=== PATIENT | male | born 1955 | race African-American/Black ===

== ENCOUNTER 2022-03-14 12:21 | Inpatient (IN) | payer MEDICARE, BC ==
--- NOTE | 2022-03-14 13:34 | ED ---
General Adult HPI - General Chief complaint: Fall Stated complaint: Failure to thrive Time Seen by Provider: 03/14/22 12:30 Source: patient, RN notes reviewed, old records reviewed Mode of arrival: EMS Limitations: physical limitation - History of Present Illness Initial comments: This is a 66-year-old male who presents emergency department and according to EMS he was living in [facility]. Patient had urinated and had bowel movements in his clothes. Patient states he was on the ground for most the last 2 weeks occasionally was able to work himself up onto his feet and he states once he is on his feet he is able to walk but when he falls down or sits down he has a difficult time getting up. Patient states at one point in time he did fall back and hit his head on the table. Patient states he is actually no medical problems. Patient denies any pain currently. Patient states he does feel somewhat short of breath. Patient denies chest pain or palpitations. Patient denies any recent fever chills or cough per patient denies any nausea vomiting diarrhea. Patient ordered food today and the person delivering the food saw the patient's living conditions and called EMS. The police have petitioned the patient. - Related Data Home Medications Medication Instructions Recorded Confirmed Multivitamins, Thera [Multivitamin 1 tab PO DAILY 03/14/22 03/14/22 (formulary)] Naproxen Sodium [Aleve] 220 mg PO BID PRN 03/14/22 03/14/22 Allergies Allergy/AdvReac Type Severity Reaction Status Date / Time No Known Allergies Allergy Verified 03/14/22 16:35 Review of Systems ROS Statement: Those systems with pertinent positive or pertinent negative responses have been documented in the HPI. ROS Other: All systems not noted in ROS Statement are negative. Past Medical History Past Medical History: No Reported History History of Any Multi-Drug Resistant Organisms: None Reported Past Surgical History: Joint Replacement Additional Past Surgical History / Comment(s): L Knee replacement 2000 and R knee replacement in 2002. Past Psychological History: Depression Smoking Status: Former smoker Past Alcohol Use History: Occasional Past Drug Use History: None Reported General Exam - General Exam Comments Initial Comments: GENERAL: Patient is well-developed and well-nourished. Patient is nontoxic and well- hydrated and is in mild distress. Patient has a small hematoma to the occipital region of his head ENT: Neck is soft and supple. No significant lymphadenopathy is noted. Oropharynx is clear. Moist mucous membranes. Neck has full range of motion without eliciting any pain. EYES: The sclera were anicteric and conjunctiva were pink and moist. Extraocular movements were intact and pupils were equal round and reactive to light. Eyelids were unremarkable. PULMONARY: Unlabored respirations. Good breath sounds bilaterally. No audible rales rhonchi or wheezing was noted. CARDIOVASCULAR: There is a regular rate and rhythm without any murmurs gallops or rubs. ABDOMEN: Soft and nontender with normal bowel sounds. No palpable organomegaly was noted. There is no palpable pulsatile mass. SKIN: Skin is clear with no lesions or rashes and otherwise unremarkable. NEUROLOGIC: Patient is alert and oriented x3. Cranial nerves II through XII are grossly intact. Motor and sensory are also intact. Normal speech, volume and content. Symmetrical smile. MUSCULOSKELETAL: Normal extremities with adequate strength and full range of motion. No lower extremity swelling or edema. No calf tenderness. LYMPHATICS: No significant lymphadenopathy is noted PSYCHIATRIC: Normal psychiatric evaluation. Limitations: physical limitation Course Vital Signs 03/14/22 03/14/22 03/14/22 12:28 14:22 15:15 Temperature 97.8 F Pulse Rate 102 H 101 H 96 Respiratory 22 20 22 Rate Blood Pressure 149/96 139/101 161/106 O2 Sat by Pulse 100 97 98 Oximetry Medical Decision Making - Medical Decision Making EKG shows sinus rhythm with occasional PVC at 97 bpm NE interval 197 QRS 94 QT interval is 365 QTC is 420. Patient's EKG shows no ST segment elevation or depr ession. CT of the chest shows a positive PE bilaterally. There is no signs of right heart strain. [facility] agreed to admit the patient admitted the patient wrote admitting orders. - Lab Data Result diagrams: 03/14/22 13:28 03/14/22 13:28 Lab Results 03/14/22 03/14/22 03/14/22 Range/Units 13:28 13:28 13:28 WBC 7.1 (3.8-10.6) k/uL RBC 4.87 (4.30-5.90) m/uL Hgb 13.3 (13.0-17.5) gm/dL Hct 43.6 (39.0-53.0) % MCV 89.5 (80.0-100.0) fL MCH 27.2 (25.0-35.0) pg MCHC 30.4 L (31.0-37.0) g/dL RDW 13.5 (11.5-15.5) % Plt Count 236 (150-450) k/uL MPV 9.0 Neutrophils % 68 % Lymphocytes % 22 % Monocytes % 5 % Eosinophils % 3 % Basophils % 1 % Neutrophils # 4.8 (1.3-7.7) k/uL Lymphocytes # 1.6 (1.0-4.8) k/uL Monocytes # 0.3 (0-1.0) k/uL Eosinophils # 0.2 (0-0.7) k/uL Basophils # 0.1 (0-0.2) k/uL PT 10.5 (9.0-12.0) sec INR 1.0 (<1.2) APTT 23.9 (22.0-30.0) sec D-Dimer 6.15 H (<0.60) mg/L FEU Sodium 139 (137-145) mmol/L Potassium 4.3 (3.5-5.1) mmol/L Chloride 105 (98-107) mmol/L Carbon Dioxide 28 (22-30) mmol/L Anion Gap 6 mmol/L BUN 18 (9-20) mg/dL Creatinine 0.92 (0.66-1.25) mg/dL Est GFR (CKD-EPI)AfAm >90 (>60 ml/min/1.73 sqM) Est GFR (CKD-EPI)NonAf 88 (>60 ml/min/1.73 sqM) Glucose 134 H (74-99) mg/dL Plasma Lactic Acid Zak (0.7-2.0) mmol/L Calcium 8.9 (8.4-10.2) mg/dL Magnesium 1.7 (1.6-2.3) mg/dL Total Bilirubin 0.8 (0.2-1.3) mg/dL AST 25 (17-59) U/L ALT 14 (4-49) U/L Alkaline Phosphatase 87 (38-126) U/L Creatine Kinase 173 H (55-170) U/L Troponin I (0.000-0.034) ng/mL NT-Pro-B Natriuret Pep pg/mL Total Protein 7.9 (6.3-8.2) g/dL Albumin 3.9 (3.5-5.0) g/dL 03/14/22 03/14/22 03/14/22 Range/Units 13:28 13:28 13:28 WBC (3.8-10.6) k/uL RBC (4.30-5.90) m/uL Hgb (13.0-17.5) gm/dL Hct (39.0-53.0) % MCV (80.0-100.0) fL MCH (25.0-35.0) pg MCHC (31.0-37.0) g/dL RDW (11.5-15.5) % Plt Count (150-450) k/uL MPV Neutrophils % % Lymphocytes % % Monocytes % % Eosinophils % % Basophils % % Neutrophils # (1.3-7.7) k/uL Lymphocytes # (1.0-4.8) k/uL Monocytes # (0-1.0) k/uL Eosinophils # (0-0.7) k/uL Basophils # (0-0.2) k/uL PT (9.0-12.0) sec INR (<1.2) APTT (22.0-30.0) sec D-Dimer (<0.60) mg/L FEU Sodium (137-145) mmol/L Potassium (3.5-5.1) mmol/L Chloride (98-107) mmol/L Carbon Dioxide (22-30) mmol/L Anion Gap mmol/L BUN (9-20) mg/dL Creatinine (0.66-1.25) mg/dL Est GFR (CKD-EPI)AfAm (>60 ml/min/1.73 sqM) Est GFR (CKD-EPI)NonAf (>60 ml/min/1.73 sqM) Glucose (74-99) mg/dL Plasma Lactic Acid Zak 1.8 (0.7-2.0) mmol/L Calcium (8.4-10.2) mg/dL Magnesium (1.6-2.3) mg/dL Total Bilirubin (0.2-1.3) mg/dL AST (17-59) U/L ALT (4-49) U/L Alkaline Phosphatase (38-126) U/L Creatine Kinase (55-170) U/L Troponin I <0.012 (0.000-0.034) ng/mL NT-Pro-B Natriuret Pep 175 pg/mL Total Protein (6.3-8.2) g/dL Albumin (3.5-5.0) g/dL Critical Care Time Critical Care Time: Yes Total Critical Care Time: 35 Disposition Clinical Impression: Pulmonary embolism Disposition: ADMITTED IP TO THIS HOSP Referrals: None,Stated [Primary Care Provider] - 1-2 days Time of Disposition: 16:51
[2022-03-14 13:39] LABS: Basophils # (A) 0.1 k/uL (0-0.2); Basophils % (A) 1 %; Eosinophils # (A) 0.2 k/uL (0-0.7); Eosinophils % (A) 3 %; HCT 43.6 % (39.0-53.0); HGB 13.3 gm/dL (13.0-17.5); Lymphocytes # (A) 1.6 k/uL (1.0-4.8); Lymphocytes % (A) 22 %; MCH 27.2 pg (25.0-35.0); MCHC 30.4 g/dL (31.0-37.0); MCV 89.5 fL (80.0-100.0); Monocytes # (A) 0.3 k/uL (0-1.0); Monocytes % (A) 5 %; Neutrophils # (A) 4.8 k/uL (1.3-7.7); Neutrophils % (A) 68 %; Platelet Count 236 k/uL (150-450); RBC 4.87 m/uL (4.30-5.90); RDW 13.5 % (11.5-15.5); WBC 7.1 k/uL (3.8-10.6)
[2022-03-14 13:52] LABS: ALT 14 U/L (4-49); AST 25 U/L (17-59); African American GFR (CKD) >90 (>60 ml/min/1.73 sqM); Albumin 3.9 g/dL (3.5-5.0); Alkaline Phosphatase 87 U/L (38-126); Anion Gap 6 mmol/L; Blood Urea Nitrogen 18 mg/dL (9-20); Calcium 8.9 mg/dL (8.4-10.2); Carbon Dioxide 28 mmol/L (22-30); Chloride 105 mmol/L (98-107); Creatine Kinase 173 U/L (55-170); Glucose 134 mg/dL (74-99); Magnesium 1.7 mg/dL (1.6-2.3); Non-African American GFR(CKD) 88 (>60 ml/min/1.73 sqM); Potassium 4.3 mmol/L (3.5-5.1); Sodium 139 mmol/L (137-145); Total Bilirubin 0.8 mg/dL (0.2-1.3); Total Protein 7.9 g/dL (6.3-8.2)
[2022-03-14 14:04] LABS: Partial Thromboplastin Time 23.9 sec (22.0-30.0); Prothrombin Time 10.5 sec (9.0-12.0)
--- NOTE | 2022-03-14 14:16 | XR ---
EXAMINATION TYPE: XR chest 2V DATE OF EXAM: 03/14/2022 COMPARISON: NONE HISTORY: Difficulty in breathing. TECHNIQUE: Frontal and lateral views of the chest are obtained. FINDINGS: Lateral view markedly suboptimal due to large body habitus. Low lung volumes are present. T here is left basilar opacity. No pleural effusion or pneumothorax bilaterally. The cardiac silhouette size is mildly enlarged. Multilevel spurring in the spine. IMPRESSION: Low lung volumes and mild cardiomegaly with left basilar opacity consistent with acute i nfiltrate and/or atelectasis.
--- NOTE | 2022-03-14 14:18 | CT ---
EXAMINATION TYPE: CT brain cspine wo con DATE OF EXAM: 03/14/2022 COMPARISON: None HISTORY: Exceed 6-year-old male with pain after Fall. Trauma. CT DLP: 1971.6 mGycm Automated exposure control for dose reduction was used. Technique: Examination of the head was done in axial plane without intravenous contrast. Coronal and sagittal reconstructions performed. CT of the cervical spine was obtained in axial plane without intravenous injection of contrast mater ial. Coronal and sagittal reformatted images were obtained from the axial views for evaluation of f ractures, spinal alignment and canal. FINDINGS: Head: There is no evidence of acute intracranial hemorrhage, acute ischemic changes, mass, mass-effect, or extra-axial fluid collection. There is no effacement of cerebral sulci or basal subarachnoid cister ns. There is no hydrocephalus. There is no midline shift. Bourne-white matter distinction is preserv ed. Hypodensity right subinsular white matter suggesting old lacunar infarct. 2.5 cm mucosal retention cyst or polyp left maxillary sinus. Slight leftward nasal septal deviation. Mastoid air cells well pneumatized. Orbits and globes are intact. No calvarial fracture. Dense dural calcifications along the anterior falx. Normal variation persisten t CSP. Cervical spine: Patient motion. Multiple dental caries. Large body habitus. No craniocervical junction abnormality, predental space widening, or prevertebral soft tissue swellin g. Scattered facet and uncovertebral joint arthropathy, greater toward the left. Degenerative grade 1 anterolisthesis C2-C3, C3-C4, C4-C5. Remaining alignment is maintained. [id number] multilevel degenerative disc disease especially mid to lower cervical spine. Excessive artifacts from the patient's elevated shoulders limiting assessment of the spinal canal. No acute fracture seen allowing for the exam limitations and extensive artifacts. Variable moderate bilateral neuroforaminal stenoses throughout, more severe on the right at T2-T3. Sagittal and coronal reformatted images confirm above findings. COMBINED IMPRESSION: 1. No acute intracranial abnormality seen. Old lacunar infarct right basal ganglia. 2. No acute fracture of the cervical spine. Extensive motion artifact and further limitation due to l arge body habitus. Overall suboptimal assessment of the visualized mediastinum in the upper chest. De generative grade 1 anterolisthesis C2-C5 levels. Moderate spondylotic change.
[2022-03-14] MEDS ORDERED: LORazepam 2 MG/ML INJ IV STA (14:45)
--- NOTE | 2022-03-14 16:48 | CT ---
EXAMINATION TYPE: CT chest angio for PE DATE OF EXAM: 03/14/2022 COMPARISON: Chest radiograph same day HISTORY: 66-year-old male shortness of breath, elevated D-dimer and dyspnea TECHNIQUE: Contiguous axial scanning of the chest performed with IV Contrast, patient injected with 1 00 mL of Isovue 370. Coronal/sagittal MIP reconstructions performed. CT DLP: 1124.8 mGycm Automated exposure control for dose reduction was used. FINDINGS: Large patient body habitus. Heart is enlarged. No flattening of the interventricular septum. Minimal reflux of contrast into the IVC. Ectatic ascending aorta 3.7 cm. Tortuous arch vessels with conventional branching anatomy. Asymmetrically dense subareolar tissues right breast partially visualized. Suspect a prominent 1.2 cm lower right paratracheal lymph node. Otherwise, no progressive lymphadenop athy by CT size criteria. Large caliber to the main right and left pulmonary arteries measuring up to 3.4 cm. Extensive motion artifact degrading assessment for pulmonary embolus. However, we do visualize a few emboli suggested in the segmental branch left upper lobe, axial image 52 and distal interlobar and ri ght lower lobar and basilar segmental branches, for example, axial image 81 through 98. Visualized upper abdomen shows renal cysts measuring up to 7.5 cm there is suspected extensive sludge layering in the gallbladder. Possible 1.3 cm splenic artery aneurysm. Extensive motion artifacts limiting assessment of the lungs. There is some patchy areas of atelectasi s in the lower lungs. Mild emphysematous change. No pleural effusion. Bones: Anterior endplate spondylosis lower thoracic spine. Extensive motion artifact. IMPRESSION: 1. VERY LIMITED EXAM DUE TO LARGE BODY HABITUS AND EXTENSIVE BREATHING MOTION. 2. HOWEVER, EXAM IS POSITIVE FOR ACUTE PE. WE SEE SOME EMBOLI IN A SEGMENTAL BRANCH OF THE LEFT UPPER LOBE. GREATER DEGREE OF EMBOLI IN THE RIGHT LOWER LOBAR AND BASILAR SEGMENTAL BRANCHES. MILD OVERALL BURDEN. NO CT EVIDENCE FOR RIGHT HEART STRAIN. 3. CARDIOMEGALY, COPD WITH MILD EMPHYSEMA, AND PULMONARY ARTERIAL HYPERTENSION. 4. ASYMMETRIC SUBAREOLAR DENSITY RIGHT BREAST. PATIENT SHOULD BE REFERRED FOR OUTPATIENT DIAGNOSTIC M AMMOGRAM EVALUATION IF ROUTINE SCREENING MAMMOGRAMS ARE NOT BEING PERFORMED. CORRELATE FOR ANY PALPAB LE ABNORMALITY. Critical findings called to Dr. Cameron in the ER at 4:45 PM.
[2022-03-14] MEDS ORDERED: HEPARIN SODIUM 1,000 UN/ML (10ML VL) IV ONE (16:50)
[2022-03-14] MEDS ORDERED: SODIUM CHLORIDE 0.9% 1,000 ML IV ONE (16:54)
[2022-03-14] MEDS: HEPARIN SOD,PORK IN 0.45% NACL 25,000 UNIT in 0.45% NACL 1 250ML.BAG IV SCH (17:05)
[2022-03-14] MEDS ORDERED: ACETAMINOPHEN TAB 325 MG TAB PO PRN (19:24)
[2022-03-14] MEDS: HYDROcodone/APAP 5-325MG 1 EACH TAB PO PRN (20:06)
[2022-03-15 08:07] LABS: Basophils # (A) 0.1 k/uL (0-0.2); Basophils % (A) 1 %; Eosinophils # (A) 0.1 k/uL (0-0.7); Eosinophils % (A) 2 %; HGB 11.7 gm/dL (13.0-17.5); Lymphocytes # (A) 1.4 k/uL (1.0-4.8); Lymphocytes % (A) 19 %; MCH 27.6 pg (25.0-35.0); MCHC 30.8 g/dL (31.0-37.0); MCV 89.5 fL (80.0-100.0); Mean Platelet Volume 9.7; Monocytes # (A) 0.6 k/uL (0-1.0); Monocytes % (A) 8 %; Neutrophils # (A) 5.2 k/uL (1.3-7.7); Neutrophils % (A) 70 %; Platelet Count 202 k/uL (150-450); RBC 4.25 m/uL (4.30-5.90); RDW 13.7 % (11.5-15.5); WBC 7.4 k/uL (3.8-10.6)
[2022-03-15 08:23] LABS: ALT 13 U/L (4-49); AST 24 U/L (17-59); African American GFR (CKD) >90 (>60 ml/min/1.73 sqM); Albumin 3.6 g/dL (3.5-5.0); Alkaline Phosphatase 81 U/L (38-126); Anion Gap 8 mmol/L; Bilirubin,Unconjugated 1.2 mg/dL (0.0-1.1); Blood Urea Nitrogen 21 mg/dL (9-20); Calcium 8.7 mg/dL (8.4-10.2); Carbon Dioxide 25 mmol/L (22-30); Chloride 105 mmol/L (98-107); Glucose 100 mg/dL (74-99); Magnesium 1.7 mg/dL (1.6-2.3); Non-African American GFR(CKD) >90 (>60 ml/min/1.73 sqM); Partial Thromboplastin Time 40.5 sec (22.0-30.0); Prothrombin Time 10.8 sec (9.0-12.0); Sodium 138 mmol/L (137-145); Total Bilirubin 1.2 mg/dL (0.2-1.3); Total Protein 7.2 g/dL (6.3-8.2)
[2022-03-15] MEDS: HEPARIN SOD,PORK IN 0.45% NACL 25,000 UNIT in 0.45% NACL 1 250ML.BAG IV SCH ×3 (08:52→20:11)
[2022-03-15] MEDS: MULTIVITAMINS, THERA 1 EACH TAB PO SCH (08:53)
[2022-03-15] MEDS ORDERED: HEPARIN SODIUM 1,000 UN/ML (10ML VL) IV PRN (09:01)
--- NOTE | 2022-03-15 09:53 | P.HPIM ---
History of Present Illness This is a pleasant 66 years old male with past medical history of depression Pt was found by route delivery clerk on the floor of his home, pt states he has been crawling around on the floor for two weeks after a fall at his home appoximately two weeks ago. patient has been falling even before that but he was able to get up, this time he was on the floor most of his furniture of his house was been throat awake because it was not in good shape, patient states that he was in the process of moving out. he was able to survive through delivery food. There was no family member or somebody else to take care of him. Also has been complaining of shortness of breath for more than 2 weeks with some dry cough but no chest pain. no abdominal pain or vomiting or diarrhea. No urinary complaints. No headache or blurred vision or slurred speech. No dizziness. No weakness or numbness. No back pain. He does not think his legs are weaker than usual but he feels generally weak. at baseline he uses a walker or cane On admission patient is tachypneic with a rate of 22. He was tachycardic around 104. He was saturating 97% on 5 L oxygen sepsis with tachypnea and tachycardia CBC, BMP and liver enzymes are unremarkable. Creatinine kinase is 173. Troponin is negative. D-dimer is elevated to 6.15. CTA of the chest showing positive pulmonary embolism in the left upper lobe and the right lower lobe with no evidence of RV strain. Also COPD with emphysema and pulmonary hypertension. Asymmetric subareolar density in the right breast and mammogram is recommended. CT of the head and neck: No acute intracranial abnormality. No acute fracture of the cervical spine. Degenerative grade 1 anterolisthesis of C2-C5 levels. Moderate spondylitic change on admission patient was started on heparin drip and normal saline Review of Systems Review of systems CONSTITUTIONAL: No fever, no malaise, no fatigue. HEENT: No recent visual problems or hearing problems. Denied any sore throat. CARDIOVASCULAR: No orthopnea, PND, no palpitations, no syncope. PULMONARY: No chest wall tenderness, no hemoptysis. GASTROINTESTINAL: No diarrhea, no nausea, no vomiting, no abdominal pain. Normoactive bowel sounds. NEUROLOGICAL: No headaches, no weakness, no numbness. HEMATOLOGICAL: Denies any bleeding or petechiae. GENITOURINARY: Denies any burning micturition, frequency, or urgency. MUSCULOSKELETAL/RHEUMATOLOGICAL: Denies any joint pain, swelling, or any muscle pain. ENDOCRINE: Denies any polyuria or polydipsia. Past Medical History Past Medical History: No Reported History History of Any Multi-Drug Resistant Organisms: None Reported Past Surgical History: Joint Replacement Additional Past Surgical History / Comment(s): L Knee replacement 2000 and R knee replacement in 2002. Past Anesthesia/Blood Transfusion Reactions: No Reported Reaction Past Psychological History: Depression Smoking Status: Never smoker Past Alcohol Use History: Rare Past Drug Use History: None Reported Medications and Allergies Home Medications Medication Instructions Recorded Confirmed Type Multivitamins, Thera [Multivitamin 1 tab PO DAILY 03/14/22 03/14/22 History (formulary)] Naproxen Sodium [Aleve] 220 mg PO BID PRN 03/14/22 03/14/22 History Allergies Allergy/AdvReac Type Severity Reaction Status Date / Time No Known Allergies Allergy Verified 03/14/22 16:35 Physical Exam Vitals: Vital Signs Temp Pulse Pulse Resp BP BP Pulse Ox 03/15/22 08:56 98.1 F 93 20 122/84 96 03/15/22 04:00 98.6 F 73 14 112/67 98 03/15/22 00:00 97.4 F L 92 18 130/73 100 03/14/22 19:57 98.0 F 99 18 120/76 100 03/14/22 18:09 99 22 137/65 96 03/14/22 17:38 104 H 22 134/102 97 03/14/22 17:00 112 H 18 152/96 03/14/22 15:15 96 22 161/106 98 03/14/22 14:22 101 H 20 139/101 97 03/14/22 12:28 97.8 F 102 H 22 149/96 100 Intake and Output 03/14/22 03/15/22 03/15/22 22:59 06:59 14:59 Intake Total 180.925 71.023 Output Total 200 Balance -19.075 71.023 Intake: Intake, IV Titration 180.925 71.023 Amount Heparin Sod,Pork in 0.45% 180.925 71.023 NaCl 25,000 unit In 0.45 % NaCl 1 250ml.bag @ 13. 343 UNITS/KG/HR 22.999 mls/hr IV .[id number] [facility] Rx #:[id number] Output: Urine 200 Other: Voiding Method Urinal # Voids 1 Weight 172.365 kg 173.5 kg GENERAL: The patient is alert and oriented x3, not in any acute distress. Well developed, well nourished. HEENT: Pupils are round and equally reacting to light. EOMI. No scleral icterus. No conjunctival pallor. Normocephalic, atraumatic. No pharyngeal erythema. No thyromegaly. CARDIOVASCULAR: S1 and S2 present. No murmurs, rubs, or gallops. -PULMONARY: Chest is clear to auscultation, no wheezing or crackles. patient is to tachypnic ABDOMEN: Soft, nontender, nondistended, normoactive bowel sounds. No palpable organomegaly. MUSCULOSKELETAL: No joint swelling or deformity. EXTREMITIES: No cyanosis, clubbing, or pedal edema. NEUROLOGICAL: Gross neurological examination did not reveal any focal deficits. SKIN: No rashes. no petechiae. Results CBC & Chem 7: 03/15/22 07:23 03/15/22 07:23 Labs: Abnormal Lab Results - Last 24 Hours (Table) 03/14/22 03/14/22 03/14/22 Range/Units 13:28 13:28 13:28 RBC (4.30-5.90) m/uL Hgb (13.0-17.5) gm/dL Hct (39.0-53.0) % MCHC 30.4 L (31.0-37.0) g/dL APTT (22.0-30.0) sec D-Dimer 6.15 H (<0.60) mg/L FEU BUN (9-20) mg/dL Glucose 134 H (74-99) mg/dL Unconjugated Bilirubin (0.0-1.1) mg/dL Creatine Kinase 173 H (55-170) U/L 03/14/22 03/15/22 03/15/22 Range/Units 22:47 07:23 07:23 RBC 4.25 L (4.30-5.90) m/uL Hgb 11.7 L (13.0-17.5) gm/dL Hct 38.0 L (39.0-53.0) % MCHC 30.8 L (31.0-37.0) g/dL APTT 82.0 H 40.5 H (22.0-30.0) sec D-Dimer (<0.60) mg/L FEU BUN (9-20) mg/dL Glucose (74-99) mg/dL Unconjugated Bilirubin (0.0-1.1) mg/dL Creatine Kinase (55-170) U/L 03/15/22 Range/Units 07:23 RBC (4.30-5.90) m/uL Hgb (13.0-17.5) gm/dL Hct (39.0-53.0) % MCHC (31.0-37.0) g/dL APTT (22.0-30.0) sec D-Dimer (<0.60) mg/L FEU BUN 21 H (9-20) mg/dL Glucose 100 H (74-99) mg/dL Unconjugated Bilirubin 1.2 H (0.0-1.1) mg/dL Creatine Kinase (55-170) U/L Thrombosis Risk Factor Assmnt - Choose All That Apply Any of the Below Risk Factors Present?: Yes Each Factor Represents 1 point: Obesity (BMI >25), Swollen legs (current) Each Risk Factor Represents 2 Points: Age 61-74 years Each Risk Factor Represents 3 Points: History of DVT/PE Other congenital or acquired thrombophilia - If yes, enter type in comment: No Thrombosis Risk Factor Assessment Total Risk Factor Score: 7 Thrombosis Risk Factor Assessment Level: High Risk Assessment and Plan Assessment: Multiple acute pulmonary embolisms in the left upper lobe and right lower lobe with no RV strain on CT of the chest Asymmetric subareolar density in the right breast and mammogram COPD with mild emphysema Pulmonary hypertension morbid obesity with BMI of 53.3 Plan: This is a pleasant 66 years old male who presents with acute pulmonary embolism and deconditioning Continue with heparin drip Check echocardiogram Pulmonary consult Monitor labs. Labs and medication were reviewed.. Continue same treatment. Continue with symptomatic treatment. Resume home medication. Monitor lytes and vitals. DVT and GI prophylaxis. Further recommendations as per clinical course of the patient DVT prophylaxis: heparin GI Prophylaxis: Pepcid PT/OT: Pending Prognosis is guarded
--- NOTE | 2022-03-15 11:21 | US ---
EXAMINATION TYPE: US venous doppler duplex LE DATE OF EXAM: 03/15/2022 9:24 AM COMPARISON: NONE CLINICAL HISTORY: leg swelling. leg edema. recent PE SIDE PERFORMED: bilateral TECHNIQUE: The lower extremity deep venous system is examined utilizing real time linear array sonog belia with graded compression, doppler sonography and color-flow sonography. VESSELS IMAGED: Common Femoral Vein Deep Femoral Vein Greater Saphenous Vein * Femoral Vein Popliteal Vein Small Saphenous Vein * Proximal Calf Veins (* superficial vessels) Right Leg: technical limitations due to patient's body habitus, morbidly obese. no evidence of DVT as visualized. unable to visualize lower femoral vein for compression Left Leg: technical limitations due to patient's body habitus, morbidly obese. no evidence of DVT as visualized. IMPRESSION: Exam is somewhat limited technically. No deep venous thrombosis is evident however
--- NOTE | 2022-03-15 12:18 | P.CNPUL ---
History of Present Illness Consult date: 03/15/22 Requesting physician: Vernon Julien Reason for consult: dyspnea, hypoxemia, pulmonary embolism, abnormal CXR/CT Chief complaint: Shortness of breath. History of present illness: This is a 66-year-old black male, very poor historian, who presents to the emergency room on March 14, with falling, and being on the ground in his house, for 2 weeks. The patient states he had a hard time getting up. Apparently EMS found the patient in conditions, the patient apparently had urinated on himself, and had defecated on himself as well. The patient apparently states he was not able get up on his feet and walk around. He's been immobile for at least 2 weeks he states. The patient does not have a physician. He denies any medical problems. He doesn't really take any medications on a regular basis. According to the ER roxi he denied any chest pain or chest discomfort. There is no fever or chills. There is no nausea vomiting or diarrhea. There is no evidence of any abdominal pain according to the patient. The patient had a chest x-ray which limits. A CT angiogram showed some segmental and subsegmental pulmonary emboli in the left upper lobe and right lower lobe, although the quality of the scan was poor because of motion artifact in the patient's body habitus. Dopplers of the lower extremities are negative for DVT. Head and cervical spine CT showed nothing acute, although there was an old lacunar infarct in the right basal ganglia. There is no acute fracture of the cervical spine. Lab data includes a white count of 7.4, hemoglobin 11.7, hematocrit 38, and platelet count 202,000. D-dimer was 6.15. PTT was 40.5. Sodium 138, potassium 4, chlorides 105, CO2 25, BUN and creatinine were 21 and 0.84. His CK was only 173. Troponin was negative. N-terminal proBNP was negative. Albumin was 3.6. Liver function tests were normal. Review of Systems REVIEW OF SYSTEMS: CONSTITUTIONAL: Weakness. NEUROLOGIC: [ Negative.] HEENT: [ Negative.] CARDIAC: [Negative.] PULMONARY: Chronic shortness of breath. GI: [Negative.] : [Negative.] RHEUMATOLOGIC: [ Negative.] IMMUNOLOGIC: [ Negative.] ENDOCRINE: [Negative. ] DERMATOLOGIC: [Negative.] Past Medical History Past Medical History: No Reported History History of Any Multi-Drug Resistant Organisms: None Reported Past Surgical History: Joint Replacement Additional Past Surgical History / Comment(s): L Knee replacement 2000 and R knee replacement in 2002. Past Anesthesia/Blood Transfusion Reactions: No Reported Reaction Past Psychological History: Depression Smoking Status: Never smoker Past Alcohol Use History: Rare Past Drug Use History: None Reported Medications and Allergies Home Medications Medication Instructions Recorded Confirmed Type Multivitamins, Thera [Multivitamin 1 tab PO DAILY 03/14/22 03/14/22 History (formulary)] Naproxen Sodium [Aleve] 220 mg PO BID PRN 03/14/22 03/14/22 History Allergies Allergy/AdvReac Type Severity Reaction Status Date / Time No Known Allergies Allergy Verified 03/14/22 16:35 Physical Exam Osteopathic Statement: *. No significant issues noted on an osteopathic structural exam other than those noted in the History and Physical/Consult. Vitals: Vital Signs Temp Pulse Pulse Resp BP BP Pulse Ox 03/15/22 08:56 98.1 F 93 20 122/84 96 03/15/22 04:00 98.6 F 73 14 112/67 98 03/15/22 00:00 97.4 F L 92 18 130/73 100 03/14/22 19:57 98.0 F 99 18 120/76 100 03/14/22 18:09 99 22 137/65 96 03/14/22 17:38 104 H 22 134/102 97 03/14/22 17:00 112 H 18 152/96 03/14/22 15:15 96 22 161/106 98 03/14/22 14:22 101 H 20 139/101 97 03/14/22 12:28 97.8 F 102 H 22 149/96 100 Intake and Output 03/14/22 03/15/22 03/15/22 22:59 06:59 14:59 Intake Total 180.925 311.023 Output Total 200 100 Balance -19.075 211.023 Intake: Intake, IV Titration 180.925 71.023 Amount Heparin Sod,Pork in 0.45% 180.925 71.023 NaCl 25,000 unit In 0.45 % NaCl 1 250ml.bag @ 13. 343 UNITS/KG/HR 22.999 mls/hr IV .[id number] [facility] Rx #:[id number] Oral 240 Output: Urine 200 100 Other: Voiding Method Urinal # Voids 1 1 Weight 172.365 kg 173.5 kg No acute distress, oriented 3. The patient does appear mildly tachypnea. 4 L saturation is 96%. HEENT examination is grossly unremarkable. Neck supple. Full range of motion. No adenopathy thyromegaly or neck vein distention. Cardiovascular examination reveals regular rhythm rate. S1-S2 normal. No S3 or S4. No discernible murmur noted. Heart sounds are distant. Heart rate 93 bpm. Lungs reveal clear breath sounds. Breath sounds are equal bilaterally. No adventitious lung sounds including wheezes rhonchi or crackles. Abdomen soft bowel sounds are heard. No masses or tenderness. Extremities are intact. No cyanosis clubbing or edema. Skin is without rash or lesion. Neurologic examination is brief but nonfocal. Results - Laboratory Findings CBC and BMP: 03/15/22 07:23 03/15/22 07:23 PT/INR, D-dimer PT 10.8 sec (9.0-12.0) 03/15/22 07:23 INR 1.0 (<1.2) 03/15/22 07:23 D-Dimer 6.15 mg/L FEU (<0.60) H 03/14/22 13:28 Abnormal lab findings: Abnormal Labs 03/14/22 03/14/22 03/14/22 13:28 13:28 13:28 RBC Hgb Hct MCHC 30.4 L APTT D-Dimer 6.15 H BUN Glucose 134 H Unconjugated Bilirubin Creatine Kinase 173 H 03/14/22 03/15/22 03/15/22 22:47 07:23 07:23 RBC 4.25 L Hgb 11.7 L Hct 38.0 L MCHC 30.8 L APTT 82.0 H 40.5 H D-Dimer BUN Glucose Unconjugated Bilirubin Creatine Kinase 03/15/22 07:23 RBC Hgb Hct MCHC APTT D-Dimer BUN 21 H Glucose 100 H Unconjugated Bilirubin 1.2 H Creatine Kinase - Diagnostic Findings Chest x-ray: image reviewed CT scan - chest: image reviewed Assessment and Plan Assessment: Bilateral pulmonary emboli, in a patient with minimal pulmonary complaints. No evidence of DVT in the lower extremities. Profound weakness. Obesity. Previous history of tobacco use. History of depression. Status post bilateral knee replacements. Plan: Plan dated 03/15/2022. The patient is currently on 4 L nasal cannula. He is mildly tachypnea. He blames it on his weight he is receiving IV heparin, and a basic IV. His labs are remarkably normal. We will continue to follow make recommendations where appropriate. The patient apparently does not see a doctor on a regular basis. Dopplers of the lower extremities were negative. CT angiogram was reviewed. Time with Patient: Greater than 30
--- NOTE | 2022-03-15 18:09 | CA ---
Transthoracic Echo Report Name: Jackson Jaramillo Age: 66 Gender: M : 1955 Exam Date: 03/15/2022 07:33 Exam Location: [place] [facility] Ht (in): 71 Wt (lb): 380 Ordering Physician: Pan Chisholm MD Attending/Referring Phys: [id number], Kathrine [employer] Control Worker Karli Patiño, [facility] Procedure CPT: Indications: Rule out heart disease Cardiac Hx: Technical Quality: Fair Contrast 1: Total Dose (mL): Contrast 2: Total Dose (mL): MEASUREMENTS (Male / Female) Normal Values 2D ECHO LV Diastolic Diameter PLAX 4.5 cm 4.2 - 5.9 / 3.9 - 5.3 cm LV Systolic Diameter PLAX 2.7 cm IVS Diastolic Thickness 1.7 cm 0.6 - 1.0 / 0.6 - 0.9 cm LVPW Diastolic Thickness 1.6 cm 0.6 - 1.0 / 0.6 - 0.9 cm LV Relative Wall Thickness 0.7 RV Internal Dim ED PLAX 3.7 cm LA Systolic Diameter LX 4.3 cm 3.0 - 4.0 / 2.7 - 3.8 cm LA Volume 78.8 cm??? 18 - 58 / 22 - 52 cm??? M-MODE Aortic Root Diameter MM 3.6 cm MV E Point Septal Separation 1.7 cm AV Cusp Separation MM 2.2 cm DOPPLER AV Peak Velocity 154.4 cm/s AV Peak Gradient 9.5 mmHg AI Peak Velocity 387.2 cm/s AI Peak Gradient 60.0 mmHg AI Pressure Half Time 571.1 ms MV Area PHT 3.9 cm??? Mitral E Point Velocity 75.6 cm/s Mitral A Point Velocity 96.1 cm/s Mitral E to A Ratio 0.8 MV Deceleration Time 196.0 ms MV E' Velocity 5.5 cm/s Mitral E to MV E' Ratio 13.7 TR Peak Velocity 258.5 cm/s TR Peak Gradient 26.7 mmHg Right Ventricular Systolic Press 31.7 mmHg FINDINGS Left Ventricle Left ventricular ejection fraction is estimated at 60-65 %. Left ventricular cavity size normal. Moderate concentric left ventricular hypertrophy. Right Ventricle Mild right ventricular dilatation. Right Atrium Normal right atrial size. Left Atrium Mildly increased left atrial diameter. Moderately increased left atrial volume. Mildly increased left atrial area. Mitral Valve Mitral annular calcification. Aortic Valve Mild aortic regurgitation. Focal thickening of the aortic valve cusps. Tricuspid Valve Mild tricuspid regurgitation. Pulmonic Valve Trace pulmonic regurgitation. Pericardium Normal pericardium. Aorta Normal size aortic root and proximal ascending aorta. CONCLUSIONS Moderate concentric LVH Normal left ventricular ejection fraction 60-65% Mildly dilated left atrium Mild mitral annular calcification Mild aortic regurgitation Mild tricuspid regurgitation Previewed by: Dr. Jero Solo DO (Electronically Signed) Final Date: 15 March 2022 18:08
[2022-03-15] MEDS: HYDROcodone/APAP 5-325MG 1 EACH TAB PO PRN (23:10)
[2022-03-16] MEDS: ONDANSETRON 4 MG/2 ML VIAL IVP PRN ×2 (04:44→17:23)
[2022-03-16] MEDS: HEPARIN SOD,PORK IN 0.45% NACL 25,000 UNIT in 0.45% NACL 1 250ML.BAG IV SCH (06:54)
[2022-03-16 07:39] LABS: Basophils % (A) 0 %; Eosinophils # (A) 0.1 k/uL (0-0.7); Eosinophils % (A) 2 %; HCT 37.3 % (39.0-53.0); HGB 11.8 gm/dL (13.0-17.5); Lymphocytes # (A) 1.3 k/uL (1.0-4.8); Lymphocytes % (A) 21 %; MCH 28.3 pg (25.0-35.0); MCHC 31.6 g/dL (31.0-37.0); MCV 89.5 fL (80.0-100.0); Mean Platelet Volume 8.6; Monocytes # (A) 0.4 k/uL (0-1.0); Monocytes % (A) 7 %; Neutrophils % (A) 67 %; Platelet Count 219 k/uL (150-450); RBC 4.17 m/uL (4.30-5.90); RDW 14.1 % (11.5-15.5); WBC 5.9 k/uL (3.8-10.6)
[2022-03-16 08:10] LABS: African American GFR (CKD) >90 (>60 ml/min/1.73 sqM); Anion Gap 5 mmol/L; Blood Urea Nitrogen 20 mg/dL (9-20); Calcium 8.7 mg/dL (8.4-10.2); Carbon Dioxide 27 mmol/L (22-30); Chloride 107 mmol/L (98-107); Glucose 111 mg/dL (74-99); Magnesium 1.8 mg/dL (1.6-2.3); Non-African American GFR(CKD) >90 (>60 ml/min/1.73 sqM); Potassium 4.6 mmol/L (3.5-5.1); Sodium 139 mmol/L (137-145)
[2022-03-16] MEDS: MULTIVITAMINS, THERA 1 EACH TAB PO SCH (09:46)
[2022-03-16] MEDS: HYDROcodone/APAP 5-325MG 1 EACH TAB PO PRN (09:46)
--- NOTE | 2022-03-16 10:55 | P.PN ---
Subjective This is a pleasant 66 years old male with past medical history of depression Pt was found by route sales delivery driver on the floor of his home, pt states he has been crawling around on the floor for two weeks after a fall at his home appoximately two weeks ago. patient has been falling even before that but he was able to get up, this time he was on the floor most of his furniture of his house was been throat awake because it was not in good shape, patient states that he was in the process of moving out. he was able to survive through delivery food. There was no family member or somebody else to take care of him. Also has been complaining of shortness of breath for more than 2 weeks with some dry cough but no chest pain. no abdominal pain or vomiting or diarrhea. No urinary complaints. No headache or blurred vision or slurred speech. No dizziness. No weakness or numbness. No back pain. He does not think his legs are weaker than usual but he feels generally weak. at baseline he uses a walker or cane On admission patient is tachypneic with a rate of 22. He was tachycardic around 104. He was saturating 97% on 5 L oxygen sepsis with tachypnea and tachycardia CBC, BMP and liver enzymes are unremarkable. Creatinine kinase is 173. T roponin is negative. D-dimer is elevated to 6.15. CTA of the chest showing positive pulmonary embolism in the left upper lobe and the right lower lobe with no evidence of RV strain. Also COPD with emphysema and pulmonary hypertension. Asymmetric subareolar density in the right breast and mammogram is recommended. CT of the head and neck: No acute intracranial abnormality. No acute fracture of the cervical spine. Degenerative grade 1 anterolisthesis of C2-C5 levels. Moderate spondylitic change on admission patient was started on heparin drip and normal saline 03/16/2022 Patient breathing is a stable and his anticoagulation is turned into Eliquis, therapeutic dose. Patient aware of his diagnosis and the need to continue with blood thinners to prevent complication which are explained for the patient extensively. Also he was informed about his right breast lesion that he needs mammogram as an outpatient and he verbalized understanding and acceptance. Risks including but not limited to cancer explained for him and he agrees. Further blood tests ordered still pending. Physical therapist recommended subacute rehab, patient informed and he agrees Objective - Vital Signs Vital signs: Vital Signs Temp 98.3 F 03/16/22 09:36 Pulse 98 03/16/22 09:36 Resp 24 03/16/22 09:36 BP 108/69 03/16/22 09:36 Pulse Ox 98 03/16/22 09:36 FiO2 Intake & Output 03/15/22 03/16/22 03/16/22 18:59 06:59 18:59 Intake Total 1171.023 993.732 303.044 Output Total 700 320 Balance 471.023 673.732 303.044 Intake: IV 20 20 Invasive Line 2 20 20 Intake, IV Titration 71.023 493.732 63.044 Amount Heparin Sod,Pork in 0.45% 71.023 493.732 63.044 NaCl 25,000 unit In 0.45 % NaCl 1 250ml.bag @ 13. 343 UNITS/KG/HR 22.999 mls/hr IV .[id number] [facility] Rx #:[id number] Oral 1080 480 240 Output: Urine 700 320 Other: Voiding Method Urinal # Voids 2 1 - Exam -GENERAL: The patient is alert and oriented x3, not in any acute distress. Morbidly obese HEENT: Pupils are round and equally reacting to light. EOMI. No scleral icterus. No conjunctival pallor. Normocephalic, atraumatic. No pharyngeal erythema. No thyromegaly. CARDIOVASCULAR: S1 and S2 present. No murmurs, rubs, or gallops. PULMONARY: Chest is clear to auscultation, no wheezing or crackles. ABDOMEN: Soft, nontender, nondistended, normoactive bowel sounds. No palpable organomegaly. MUSCULOSKELETAL: No joint swelling or deformity. EXTREMITIES: No cyanosis, clubbing, or pedal edema. NEUROLOGICAL: Gross neurological examination did not reveal any focal deficits. SKIN: No rashes. no petechiae. - Labs CBC & Chem 7: 03/16/22 07:18 03/16/22 07:18 Labs: Abnormal Lab Results - Last 24 Hours (Table) 03/15/22 03/16/22 03/16/22 Range/Units 14:48 07:18 07:18 RBC (4.30-5.90) m/uL Hgb (13.0-17.5) gm/dL Hct (39.0-53.0) % APTT 65.4 H 92.5 H (22.0-30.0) sec Glucose 111 H (74-99) mg/dL 03/16/22 Range/Units 07:18 RBC 4.17 L (4.30-5.90) m/uL Hgb 11.8 L (13.0-17.5) gm/dL Hct 37.3 L (39.0-53.0) % APTT (22.0-30.0) sec Glucose (74-99) mg/dL Assessment and Plan Assessment: Multiple acute pulmonary embolisms in the left upper lobe and right lower lobe with no RV strain on CT of the chest Asymmetric subareolar density in the right breast and mammogram COPD with mild emphysema Pulmonary hypertension morbid obesity with BMI of 53.3 Plan: This is a pleasant 66 years old male who presents with acute pulmonary embolism and deconditioning Continue with Eliquis Pulmonary consult Patient agrees to rehab Patient will need mammogram for his right breast lesion, he is informed and agrees. Risk of cancer explained for him and he verbalized understanding Labs and medication were reviewed.. Continue same treatment. Continue with symptomatic treatment. Resume home medication. Monitor lytes and vitals. DVT and GI prophylaxis. Further recommendations as per clinical course of the patie nt DVT prophylaxis: Eliquis GI PROPHYLAXIS: Pepcid Subacute rehab upon discharge, patient agreeable Prognosis is guarded
[2022-03-16] MEDS: APIXABAN 5 MG TAB PO SCH ×2 (11:26→19:53)
--- NOTE | 2022-03-16 12:31 | P.PN ---
Subjective Progress Note Date: 03/16/22 Principal diagnosis: Shortness of breath. This is a 66-year-old black male, very poor historian, who presents to the emergency room on March 14, with falling, and being on the ground in his house, for 2 weeks. The patient states he had a hard time getting up. Apparently EMS found the patient in conditions, the patient apparently had urinated on himself, and had defecated on himself as well. The patient apparently states he was not able get up on his feet and walk around. He's been immobile for at least 2 weeks he states. The patient does not have a physician. He denies any medical problems. He doesn't really take any medications on a regular basis. According to the ER roxi he denied any chest pain or chest discomfort. There is no fever or chills. There is no nausea vomiting or diarrhea. There is no evidence of any abdominal pain according to the patient. The patient had a chest x-ray which limits. A CT angiogram showed some segmental and subsegmental pulmonary emboli in the left upper lobe and right lower lobe, although the quality of the scan was poor because of motion artifact in the patient's body habitus. Dopplers of the lower extremities are negative for DVT. Head and cervical spine CT showed nothing acute, although there was an old lacunar infarct in the right basal ganglia. There is no acute fracture of the cervical spine. Lab data inc ludes a white count of 7.4, hemoglobin 11.7, hematocrit 38, and platelet count 202,000. D-dimer was 6.15. PTT was 40.5. Sodium 138, potassium 4, chlorides 105, CO2 25, BUN and creatinine were 21 and 0.84. His CK was only 173. Troponin was negative. N-terminal proBNP was negative. Albumin was 3.6. Liver function tests were normal. Progress note dated 03/16/2022. 66-year-old black male seen yesterday in consultation. The patient was discovered to have a pulmonary embolism. The patient is currently on 4 L nasal cannula. The patient is feeling a bit better. Dopplers of the lower extr emities were negative for DVT. Current laboratory data includes a white count of 5.9, hemoglobin 11.8, hematocrit 37.3, and a platelet count of 219,000. PTT was 92.5. The patient does remain on an IV heparin drip. Sodium, potassium, chloride, CO2, anion gap, BUN, and creatinine are all normal. Objective - Vital Signs Vital signs: Vital Signs Temp 98.3 F 03/16/22 09:36 Pulse 98 03/16/22 09:36 Resp 24 03/16/22 09:36 BP 108/69 03/16/22 09:36 Pulse Ox 98 03/16/22 09:36 FiO2 Intake & Output 03/15/22 03/16/22 03/16/22 18:59 06:59 18:59 Intake Total 1171.023 993.732 303.044 Output Total 700 320 Balance 471.023 673.732 303.044 Intake: IV 20 20 Invasive Line 2 20 20 Intake, IV Titration 71.023 493.732 63.044 Amount Heparin Sod,Pork in 0.45% 71.023 493.732 63.044 NaCl 25,000 unit In 0.45 % NaCl 1 250ml.bag @ 13. 343 UNITS/KG/HR 22.999 mls/hr IV .[id number] [facility] Rx #:[id number] Oral 1080 480 240 Output: Urine 700 320 Other: Voiding Method Urinal # Voids 2 1 - Exam No acute distress, oriented 3. The patient does appear mildly tachypnea. 4 L saturation is 100%. HEENT examination is grossly unremarkable. Neck supple. Full range of motion. No adenopathy thyromegaly or neck vein distention. Cardiovascular examination reveals regular rhythm rate. S1-S2 normal. No S3 or S4. No discernible murmur noted. Heart sounds are distant. Heart rate 98 bpm. Lungs reveal clear breath sounds. Breath sounds are equal bilaterally. No adventitious lung sounds including wheezes rhonchi or crackles. Abdomen soft bowel sounds are heard. No masses or tenderness. Extremities are intact. No cyanosis clubbing or edema. Skin is without rash or lesion. Neurologic examination is brief but nonfocal. - Labs CBC & Chem 7: 03/16/22 07:18 03/16/22 07:18 Labs: Abnormal Lab Results - Last 24 Hours (Table) 03/15/22 03/16/22 03/16/22 Range/Units 14:48 07:18 07:18 RBC (4.30-5.90) m/uL Hgb (13.0-17.5) gm/dL Hct (39.0-53.0) % APTT 65.4 H 92.5 H (22.0-30.0) sec Glucose 111 H (74-99) mg/dL 03/16/22 Range/Units 07:18 RBC 4.17 L (4.30-5.90) m/uL Hgb 11.8 L (13.0-17.5) gm/dL Hct 37.3 L (39.0-53.0) % APTT (22.0-30.0) sec Glucose (74-99) mg/dL Assessment and Plan Assessment: Bilateral pulmonary emboli, in a patient with minimal pulmonary complaints. No evidence of DVT in the lower extremities. Profound weakness. Obesity. Previous history of tobacco use. History of depression. Status post bilateral knee replacements. Plan: Plan dated 03/15/2022. The patient is currently on 4 L nasal cannula. He is mildly tachypnea. He blames it on his weight he is receiving IV heparin, and a basic IV. His labs are remarkably normal. We will continue to follow make recommendations where appropriate. The patient apparently does not see a doctor on a regular basis. Dopplers of the lower extremities were negative. CT angiogram was reviewed. Plan dated 03/16/2022. The patient could be converted to a factor X a inhibitor. The patient remains on IV heparin currently. The patient's 4 L saturations on the percent. That can be titrated down. Labs, x-rays, and medications are all reviewed. CT angiogram in Dopplers of the lower extremities were reviewed. The patient's overall prognosis remains guarded. We will continue to follow make recommendations where appropriate. Time with Patient: Less than 30
[2022-03-17] MEDS: ONDANSETRON 4 MG/2 ML VIAL IVP PRN ×2 (00:24→08:41)
[2022-03-17] MEDS: APIXABAN 5 MG TAB PO SCH ×2 (08:41→21:15)
[2022-03-17] MEDS: MULTIVITAMINS, THERA 1 EACH TAB PO SCH (08:41)
--- NOTE | 2022-03-17 10:28 | XR ---
EXAMINATION TYPE: XR KUB DATE OF EXAM: 03/17/2022 COMPARISON: NONE HISTORY: Pain TECHNIQUE: One view abdominal series FINDINGS: The osseous structures are intact. The bowel gas pattern is nonspecific. Lung bases are clear. Cath eter overlying the left inguinal region. Exam limited by technique. Grossly bowel gas pattern is nons pecific. A few prominent small bowel loops are noted. Air is seen distally within the left colon. Upp er abdomen is not included in the [id number] and therefore assessment of free air nondiagnostic. A rthropathy of the hips correlate for femoral acetabular impingement. IMPRESSION: 1. Nonspecific abdomen. Few prominent small bowel loops could be on the basis of an ileus. Retained fecal debris throughout the colon can be associated with constipation. Correlate clinically.
[2022-03-17 11:34] LABS: Basophils % (A) 1 %; Eosinophils # (A) 0.1 k/uL (0-0.7); Eosinophils % (A) 1 %; HCT 38.6 % (39.0-53.0); HGB 12.2 gm/dL (13.0-17.5); Lymphocytes # (A) 0.9 k/uL (1.0-4.8); Lymphocytes % (A) 14 %; MCH 28.6 pg (25.0-35.0); MCHC 31.7 g/dL (31.0-37.0); MCV 90.3 fL (80.0-100.0); Mean Platelet Volume 9.1; Monocytes # (A) 0.3 k/uL (0-1.0); Monocytes % (A) 5 %; Neutrophils # (A) 4.7 k/uL (1.3-7.7); Neutrophils % (A) 77 %; Platelet Count 206 k/uL (150-450); RBC 4.28 m/uL (4.30-5.90); RDW 13.9 % (11.5-15.5); WBC 6.1 k/uL (3.8-10.6)
--- NOTE | 2022-03-17 14:07 | P.PN ---
Subjective Progress Note Date: 03/17/22 This is a 66-year-old black male, very poor historian, who presents to the emergency room on March 14, with falling, and being on the ground in his house, for 2 weeks. The patient states he had a hard time getting up. Apparently EMS found the patient in conditions, the patient apparently had urinated on himself, and had defecated on himself as well. The patient apparently states he was not able get up on his feet and walk around. He's been immobile for at least 2 weeks he states. The patient does not have a physician. He denies any medical problems. He doesn't really take any medications on a regular basis. According to the ER roxi he denied any chest pain or chest discomfort. There is no fever or chills. There is no nausea vomiting or diarrhea. There is no evidence of any abdominal pain according to the patient. The patient had a chest x-ray which limits. A CT angiogram showed some segmental and subsegmental pulmonary emboli in the left upper lobe and right lower lobe, although the quality of the scan was poor because of motion artifact in the patient's body habitus. Dopplers of the lower extremities are negative for DVT. Head and cervical spine CT showed nothing acute, although there was an old lacunar infarct in the right basal ganglia. There is no acute fracture of the cervical spine. Lab data includes a white count of 7.4, hemoglobin 11.7, hematocrit 38, and platelet count 202,000. D-dimer was 6.15. PTT was 40.5. Sodium 138, potassium 4, chlorides 105, CO2 25, BUN and creatinine were 21 and 0.84. His CK was only 173. Troponin was negative. N-terminal proBNP was negative. Albumin was 3.6. Liver function tests were normal. Progress note dated 03/16/2022. 66-year-old black male seen yesterday in consultation. The patient was discovered to have a pulmonary embolism. The patient is currently on 4 L nasal cannula. The patient is feeling a bit better. Dopplers of the lower extremities were negative for DVT. Current laboratory data includes a white count of 5.9, hemoglobin 11.8, hematocrit 37.3, and a platelet count of 219,000. PTT was 92.5. The patient does remain on an IV heparin drip. Sodium, potassium, chloride, CO2, anion gap, BUN, and creatinine are all normal. The patient is seen today 03/17/2022 in follow-up on the selective care unit. He is currently resting comfortably in bed. Awake and alert in no acute distress. Denies any worsening shortness of breath cough or congestion. No hemoptysis. No chest pain or palpitations. He has been transitioned to Eliquis. He does desaturate to 84% on room air. 96% on 2 L nasal cannula. He's been afebrile. Hemodynamically stable. KUB x-ray revealed nonspecific abdomen. Few prominent small bowel loops could be on the basis of an ileus. Retained fecal debris throughout the colon can be associated with constipation. The patient has been nauseated today. White count 6.1. Hemoglobin 12.2. Platelets 206. Objective - Vital Signs Vital signs: Vital Signs Temp 98.1 F 03/17/22 08:34 Pulse 100 03/17/22 08:34 Resp 18 03/17/22 08:44 BP 117/73 03/17/22 08:34 Pulse Ox 96 03/17/22 08:44 FiO2 Intake & Output 03/16/22 03/17/22 03/17/22 18:59 06:59 18:59 Intake Total 1163.044 540 20 Output Total 350 525 Balance 813.044 15 20 Intake: IV 20 20 Invasive Line 2 20 20 Intake, IV Titration 63.044 Amount Heparin Sod,Pork in 0.45% 63.044 NaCl 25,000 unit In 0.45 % NaCl 1 250ml.bag @ 13. 343 UNITS/KG/HR 22.999 mls/hr IV .[id number] [facility] Rx #:[id number] Oral 1080 540 Output: Urine 350 525 Other: Voiding Method Urinal Urinal Urinal # Voids 2 1 2 - Exam Awake, alert pleasant 66-year-old male patient. No acute distress, oriented 3. 2 L saturation is 96%. HEENT examination is grossly unremarkable. Neck supple. Full range of motion. No adenopathy thyromegaly or neck vein distention. Cardiovascular examination reveals regular rhythm rate. S1-S2 normal. No S3 or S4. No discernible murmur noted. Heart sounds are distant. Heart rate 98 bpm. Lungs reveal clear breath sounds. Breath sounds are equal bilaterally. No adventitious lung sounds including wheezes rhonchi or crackles. Abdomen soft bowel sounds are heard. No masses or tenderness. Extremities are intact. No cyanosis clubbing or edema. Skin is without rash or lesion. Neurologic examination is brief but nonfocal. - Labs CBC & Chem 7: 03/17/22 11:00 03/16/22 07:18 Labs: Abnormal Lab Results - Last 24 Hours (Table) 03/17/22 Range/Units 11:00 RBC 4.28 L (4.30-5.90) m/uL Hgb 12.2 L (13.0-17.5) gm/dL Hct 38.6 L (39.0-53.0) % Lymphocytes # 0.9 L (1.0-4.8) k/uL Assessment and Plan Assessment: Bilateral pulmonary emboli, in a patient with minimal pulmonary complaints. No evidence of DVT in the lower extremities. Profound weakness. Obesity. Previous history of tobacco use. History of depression. Status post bilateral knee replacements. Plan: The patient was seen and evaluated Stable from the pulmonary standpoint Initiated on Eliquis May require home oxygen Home once cleared by medicine I have personally seen and examined the patient, performed the documentation and the assessment and plan as written. Number of minutes spent on the visit: 10.
[2022-03-17] MEDS ORDERED: MAGNESIUM HYDROXIDE 2,400 MG/10 ML CUP PO PRN (16:00)
--- NOTE | 2022-03-17 16:00 | P.GSCN ---
History of Present Illness Consult date: 03/17/22 Reason for Consult: Abdominal pain, right breast lesion seen on CT, bilateral pulmonary embolism, super morbid obesity with BMI of 53. History of present illness: Patient is a 66-year-old gentleman admitted to [facility] through the emergency department 02/11/2022. He was found by a food mail delivery supervisor and his home in the repair on the floor and covered in excrement living in [facility]. The mail delivery supervisor called EMS who subsequently brought to the hospital. He doesn't follow with the position has no nearby family members. CT angiogram are confirmed bilateral segmental to subsegmental pulmonary embolus without signs of right heart strain. There is incidental note on CT of an asymmetrical lobular subareolar density on the right. Images were reviewed there is some subcutaneous fluid at the retroareolar lead regions bilaterally. There are a few scattered axillary lymph nodes between 1 and 1.5 cm, no grossly apparent lymphadenopathy and an irregular nodular mass at the subareolar region on the right. Patient denies breast pain or drainage or previous biopsies. An echocardiogram showed some moderate left ventricular concentric hypertrophy with acceptable systolic ejection fraction and mild valvular disease. Over the past 24 hours he's had some problems with waxing and waning lower abdominal pain in the setting of what he describes as constipation. He has had similar issues in the past. Pain is tolerable, patient's presently resting comfortably. CBC today reveals white blood cell count of 6.1, hemoglobin 12.2, platelet count of 206. Serum sodium yesterday was 139, potassium 4.6, CO2 of 27, creatinine 0.77, glucose of 111. Patient's been started on systemic anticoagulation for PE. Abdominal x-ray today showed nonspecific findings and a few unimpressive prominent small bowel loops that could is consistent with ileus, there was fecal retention seen consistent with a degree of constipation. Review of Systems All systems: negative - Constitutional Reports as per HPI - EENT Ears, nose, mouth and throat: Reports as per HPI - Cardiovascular Reports as per HPI, Reports dyspnea on exertion, Reports shortness of breath - Respiratory Reports as per HPI, Reports dyspnea - Gastrointestinal Reports as per HPI, Reports abdominal pain, Reports constipation - Genitourinary Reports as per HPI - Musculoskeletal Reports as per HPI - Integumentary Reports as per HPI - Neurological Reports as per HPI - Psychiatric Reports as per HPI - Endocrine Reports as per HPI - Hematologic/Lymphatic Reports as per HPI - Allergic/Immunologic Reports as per HPI Past Medical History Past Medical History: No Reported History History of Any Multi-Drug Resistant Organisms: None Reported Past Surgical History: Joint Replacement Additional Past Surgical History / Comment(s): L Knee replacement 2000 and R knee replacement in 2002. Past Anesthesia/Blood Transfusion Reactions: No Reported Reaction Past Psychological History: Depression Smoking Status: Never smoker Past Alcohol Use History: Rare Past Drug Use History: None Reported Medications and Allergies Home Medications Medication Instructions Recorded Confirmed Type Multivitamins, Thera [Multivitamin 1 tab PO DAILY 03/14/22 03/14/22 History (formulary)] Naproxen Sodium [Aleve] 220 mg PO BID PRN 03/14/22 03/14/22 History Allergies Allergy/AdvReac Type Severity Reaction Status Date / Time No Known Allergies Allergy Verified 03/14/22 16:35 Surgical - Exam Osteopathic Statement: *. No significant issues noted on an osteopathic structural exam other than those noted in the History and Physical/Consult. Vital Signs Temp Pulse Resp BP Pulse Ox 97.8 F 102 H 22 149/96 100 03/14/22 12:28 03/14/22 12:28 03/14/22 12:28 03/14/22 12:28 03/14/22 12:28 - General no distress, obese - Eyes PERRL, normal ocular movement - ENT normal pinna, normal nares, no congestion - Neck no masses - Respiratory normal expansion, normal respiratory effort, clear to auscultation - Cardiovascular Rhythm: regular - Abdomen Mild lower abdominal tenderness on deep palpation. I'm unable to appreciate a hernia on exam but physical exam is complicated by super morbid obesity. Patient has innumerable skin lesions consistent with minor carbuncles and furuncles. No signs of abscess Abdomen: soft - Neurologic normal coordination, normal sensation - Psychiatric oriented to time, oriented to person, oriented to place, speech is normal, memory intact Breast exam reveals a palpable 3.5 x 3.5 or so soft tissue irregularity at the left retroareolar area over region and contrast at the CT findings there is fluctuance under the right nipple area complex without induration or cellulitis. No tenderness no nipple retraction no overlying skin changes. No appreciable axillary lymphadenopathy. Results - Labs 03/17/22 11:00 03/16/22 07:18 Abnormal Lab Results - Last 24 Hours (Table) 03/17/22 Range/Units 11:00 RBC 4.28 L (4.30-5.90) m/uL Hgb 12.2 L (13.0-17.5) gm/dL Hct 38.6 L (39.0-53.0) % Lymphocytes # 0.9 L (1.0-4.8) k/uL - Imaging Abdominal x-ray: report reviewed, image reviewed CT scan - chest: report reviewed, image reviewed Assessment and Plan Assessment: 66-year-old gentleman with right sided soft tissue retroareolar density seen incidentally on CT without discrete lymphadenopathy on exam or imaging. No localized antecedent trauma described, no previous biopsy. Rule out underlying neoplasia. Acute pulmonary embolus in the setting of a fall without obvious injuries. Started on systemic anticoagulants. Lower abdominal pain, clinical history, imaging and exam consistent with a degree of constipation. No evidence of bowel obstruction seen on initial CT, no evidence of hernia on physical exam as able. Super morbid obesity with BMI of 53. Plan: Workup of breast masses generally pursued in an outpatient setting and always starts with diagnostic mammogram. Given the patient's social situation will order a bilateral diagnostic mammogram and see if that can be completed in the hospital. Depending on the findings he may need to subsequent diagnostic ultrasound with image guided biopsy. The lesion described on CT on the right isn't really palpable. Patient's abdominal pain would be consistent with a de gree of constipation, will administer a dose of milk of magnesia today and as needed and we will see how he does. Continue with medical treatment for PE per consultants. Time with Patient: Greater than 30
--- NOTE | 2022-03-17 16:50 | P.PN ---
Subjective This is a pleasant 66 years old male with past medical history of depression Pt was found by delivery director on the floor of his home, pt states he has been crawling around on the floor for two weeks after a fall at his home appoximately two weeks ago. patient has been falling even before that but he was able to get up, this time he was on the floor most of his furniture of his house was been throat awake because it was not in good shape, patient states that he was in the process of moving out. he was able to survive through delivery food. There was no family member or somebody else to take care of him. Also has been complaining of shortness of breath for more than 2 weeks with some dry cough but no chest pain. no abdominal pain or vomiting or diarrhea. No urinary complaints. No headache or blurred vision or slurred speech. No dizziness. No weakness or numbness. No back pain. He does not think his legs are weaker than usual but he feels generally weak. at baseline he uses a walker or cane On admission patient is tachypneic with a rate of 22. He was tachycardic around 104. He was saturating 97% on 5 L oxygen sepsis with tachypnea and tachycardia CBC, BMP and liver enzymes are unremarkable. Creatinine kinase is 173. T roponin is negative. D-dimer is elevated to 6.15. CTA of the chest showing positive pulmonary embolism in the left upper lobe and the right lower lobe with no evidence of RV strain. Also COPD with emphysema and pulmonary hypertension. Asymmetric subareolar density in the right breast and mammogram is recommended. CT of the head and neck: No acute intracranial abnormality. No acute fracture of the cervical spine. Degenerative grade 1 anterolisthesis of C2-C5 levels. Moderate spondylitic change on admission patient was started on heparin drip and normal saline 03/16/2022 Patient breathing is a stable and his anticoagulation is turned into Eliquis, therapeutic dose. Patient aware of his diagnosis and the need to continue with blood thinners to prevent complication which are explained for the patient extensively. Also he was informed about his right breast lesion that he needs mammogram as an outpatient and he verbalized understanding and acceptance. Risks including but not limited to cancer explained for him and he agrees. Further blood tests ordered still pending. Physical therapist recommended subacute rehab, patient informed and he agrees 03/17/2022 Patient is awake and alert, breathing is quiet. He is saturating well on 2 L oxygen per minute. Mild leukocytosis of 12.2 which is stable. TSH 2.5. Today he started complaining of from abdominal pain, periumbilical with vomiting, he did not have bowel movements since admission. Therefore we will order a KUB and ask for surgery team consult. Patient currently is wished on Eliquis. Bedside nurse noted the patient severely depressed and emotional easily and he might benefit from psychiatric evaluation Objective - Vital Signs Vital signs: Vital Signs Temp 98.1 F 03/17/22 08:34 Pulse 100 03/17/22 08:34 Resp 18 03/17/22 08:44 BP 117/73 03/17/22 08:34 Pulse Ox 96 03/17/22 08:44 FiO2 Intake & Output 03/16/22 03/17/22 03/17/22 18:59 06:59 18:59 Intake Total 1163.044 540 20 Output Total 350 525 Balance 813.044 15 20 Intake: IV 20 20 Invasive Line 2 20 20 Intake, IV Titration 63.044 Amount Heparin Sod,Pork in 0.45% 63.044 NaCl 25,000 unit In 0.45 % NaCl 1 250ml.bag @ 13. 343 UNITS/KG/HR 22.999 mls/hr IV .[id number] [facility] Rx #:[id number] Oral 1080 540 Output: Urine 350 525 Other: Voiding Method Urinal Urinal Urinal # Voids 2 1 2 - Exam -GENERAL: The patient is alert and oriented x3, not in any acute distress. Morbidly obese HEENT: Pupils are round and equally reacting to light. EOMI. No scleral icterus. No conjunctival pallor. Normocephalic, atraumatic. No pharyngeal erythema. No thyromegaly. CARDIOVASCULAR: S1 and S2 present. No murmurs, rubs, or gallops. PULMONARY: Chest is clear to auscultation, no wheezing or crackles. ABDOMEN: Soft, nontender, nondistended, normoactive bowel sounds. No palpable organomegaly. MUSCULOSKELETAL: No joint swelling or deformity. EXTREMITIES: No cyanosis, clubbing, or pedal edema. NEUROLOGICAL: Gross neurological examination did not reveal any focal deficits. SKIN: No rashes. no petechiae. - Labs CBC & Chem 7: 03/17/22 11:00 03/16/22 07:18 Assessment and Plan Assessment: Multiple acute pulmonary embolisms in the left upper lobe and right lower lobe with no RV strain on CT of the chest Asymmetric subareolar density in the right breast Abdominal pain suspicious for ileus versus bowel obstruction. KUB and surgery consult ordered Sadness and emotional, rule out depression COPD with mild emphysema Pulmonary hypertension morbid obesity with BMI of 53.3 Plan: This is a pleasant 66 years old male who presents with acute pulmonary embolism and deconditioning Continue with Eliquis Pulmonary consult Patient agrees to rehab Patient will need mammogram for his right breast lesion, he is informed and agrees. Risk of cancer explained for him and he verbalized understanding Surgical team consult for breast lesion and abdominal pain. Psychiatric consult for ruling out depression Labs and medication were reviewed.. Continue same treatment. Continue with symptomatic treatment. Resume home medication. Monitor lytes and vitals. DVT and GI prophylaxis. Further recommendations as per clinical course of the patient DVT prophylaxis: Eliquis GI PROPHYLAXIS: Pepcid Subacute rehab upon discharge, patient agreeable Prognosis is guarded
[2022-03-18] MEDS: APIXABAN 5 MG TAB PO SCH ×2 (08:50→21:41)
[2022-03-18] MEDS: MULTIVITAMINS, THERA 1 EACH TAB PO SCH (08:50)
[2022-03-18 09:43] LABS: Basophils % (A) 1 %; Eosinophils # (A) 0.1 k/uL (0-0.7); Eosinophils % (A) 2 %; HGB 12.2 gm/dL (13.0-17.5); Lymphocytes # (A) 0.8 k/uL (1.0-4.8); Lymphocytes % (A) 14 %; MCH 28.1 pg (25.0-35.0); MCHC 31.3 g/dL (31.0-37.0); MCV 89.8 fL (80.0-100.0); Mean Platelet Volume 8.6; Monocytes # (A) 0.4 k/uL (0-1.0); Monocytes % (A) 7 %; Neutrophils # (A) 4.1 k/uL (1.3-7.7); Neutrophils % (A) 75 %; Platelet Count 208 k/uL (150-450); RBC 4.35 m/uL (4.30-5.90); RDW 13.8 % (11.5-15.5); WBC 5.5 k/uL (3.8-10.6)
[2022-03-18 10:25] LABS: ALT 15 U/L (4-49); AST 26 U/L (17-59); African American GFR (CKD) >90 (>60 ml/min/1.73 sqM); Albumin 3.7 g/dL (3.5-5.0); Alkaline Phosphatase 74 U/L (38-126); Anion Gap 10 mmol/L; Bilirubin, Delta 0.1 mg/dL (0.0-0.2); Blood Urea Nitrogen 10 mg/dL (9-20); Calcium 8.7 mg/dL (8.4-10.2); Carbon Dioxide 30 mmol/L (22-30); Chloride 98 mmol/L (98-107); Glucose 103 mg/dL (74-99); Magnesium 1.8 mg/dL (1.6-2.3); Non-African American GFR(CKD) >90 (>60 ml/min/1.73 sqM); Potassium 4.2 mmol/L (3.5-5.1); Sodium 138 mmol/L (137-145); Total Bilirubin 1.1 mg/dL (0.2-1.3); Total Protein 7.6 g/dL (6.3-8.2)
[2022-03-18 10:51] VITALS: RESP 18
--- NOTE | 2022-03-18 12:21 | P.PN ---
Subjective Progress Note Date: 03/18/22 This is a 66-year-old black male, very poor historian, who presents to the emergency room on March 14, with falling, and being on the ground in his house, for 2 weeks. The patient states he had a hard time getting up. Apparently EMS found the patient in conditions, the patient apparently had urinated on himself, and had defecated on himself as well. The patient apparently states he was not able get up on his feet and walk around. He's been immobile for at least 2 weeks he states. The patient does not have a physician. He denies any medical problems. He doesn't really take any medications on a regular basis. According to the ER roxi he denied any chest pain or chest discomfort. There is no fever or chills. There is no nausea vomiting or diarrhea. There is no evidence of any abdominal pain according to the patient. The patient had a chest x-ray which limits. A CT angiogram showed some segmental and subsegmental pulmonary emboli in the left upper lobe and right lower lobe, although the quality of the scan was poor because of motion artifact in the patient's body habitus. Doppler s of the lower extremities are negative for DVT. Head and cervical spine CT showed nothing acute, although there was an old lacunar infarct in the right basal ganglia. There is no acute fracture of the cervical spine. Lab data includes a white count of 7.4, hemoglobin 11.7, hematocrit 38, and platelet count 202,000. D-dimer was 6.15. PTT was 40.5. Sodium 138, potassium 4, chlorides 105, CO2 25, BUN and creatinine were 21 and 0.84. His CK was only 173. Troponin was negative. N-terminal proBNP was negative. Albumin was 3.6. Liver function tests were normal. Progress note dated 03/16/2022. 66-year-old black male seen yesterday in consultation. The patient was discovered to have a pulmonary embolism. The patient is currently on 4 L nasal cannula. The patient is feeling a bit better. Dopplers of the lower extremities were negative for DVT. Current laboratory data includes a white count of 5.9, hemoglobin 11.8, hematocrit 37.3, and a platelet count of 219,000. PTT was 92.5. The patient does remain on an IV heparin drip. Sodium, potassium, chloride, CO2, anion gap, BUN, and creatinine are all normal. The patient is seen today 03/17/2022 in follow-up on the selective care unit. He is currently resting comfortably in bed. Awake and alert in no acute distress. Denies any worsening shortness of breath cough or congestion. No hemoptysis. No chest pain or palpitations. He has been transitioned to Eliquis. He does desaturate to 84% on room air. 96% on 2 L nasal cannula. He's been afebrile. Hemodynamically stable. KUB x-ray revealed nonspecific abdomen. Few prominent small bowel loops could be on the basis of an ileus. Retained fecal debris throughout the colon can be associated with constipation. The patient has been nauseated today. White count 6.1. Hemoglobin 12.2. Platelets 206. 2021, I'm seeing the patient for a follow-up. Is a case of pulmonary embolism and is currently on Eliquis Milligrams by mouth twice a day. Is a new diagnosis of pulmonary embolism. All of his blood work essentially within normal limits. The patient is currently on 2 L of O2 nasal cannula with a pulse ox of 98%. Doppler of the lower extremity was negative. CT angiogram of the chest was completed at the time of admission and the patient was found to have segmental and subsegmental pulmonary emboli in the left upper lobe and right lower lobe. No other complaints otherwise for now. No bleeding complications. I personally reviewed the CAT scan of the chest and I agreed to the fact of presence of some unusual subsegmental defects to suggest pulmonary embolism. Objective - Vital Signs Vital signs: Vital Signs Temp 98.2 F 03/18/22 07:55 Pulse 84 03/18/22 07:55 Resp 18 03/18/22 07:55 BP 117/69 03/18/22 07:55 Pulse Ox 98 03/18/22 07:55 FiO2 Intake & Output 03/17/22 03/18/22 03/18/22 18:59 06:59 18:59 Intake Total 40 280 828 Output Total 200 300 Balance -160 -20 828 Intake: IV 40 40 10 Invasive Line 2 40 40 10 Oral 240 818 Output: Urine 200 300 Other: Voiding Method Urinal External Catheter # Voids 2 1 # Bowel Movements 2 - Exam Awake, alert pleasant 66-year-old male patient. No acute distress, oriented 3. 2 L saturation is 96%. HEENT examination is grossly unremarkable. Neck supple. Full range of motion. No adenopathy thyromegaly or neck vein distention. Cardiovascular examination reveals regular rhythm rate. S1-S2 normal. No S3 or S4. No discernible murmur noted. Heart sounds are distant. Heart rate 98 bpm. Lungs reveal clear breath sounds. Breath sounds are equal bilaterally. No adventitious lung sounds including wheezes rhonchi or crackles. Abdomen soft bowel sounds are heard. No masses or tenderness. Extremities are intact. No cyanosis clubbing or edema. Skin is without rash or lesion. Neurologic examination is brief but nonfocal. - Labs CBC & Chem 7: 03/18/22 08:56 03/18/22 08:56 Labs: Abnormal Lab Results - Last 24 Hours (Table) 03/18/22 03/18/22 Range/Units 08:56 08:56 Hgb 12.2 L (13.0-17.5) gm/dL Lymphocytes # 0.8 L (1.0-4.8) k/uL Creatinine 0.65 L (0.66-1.25) mg/dL Glucose 103 H (74-99) mg/dL Assessment and Plan Plan: Acute hypoxic respiratory failure and the patient is currently on 3 L O2 nasal cannula Bilateral pulmonary emboli, in a patient with minimal pulmonary complaints.The patient is currently on Eliquis 10 mg by mouth twice a day and the patient is off IV heparin. No evidence of DVT in the lower extremities. Profound weakness. Obesity. Previous history of tobacco use. History of depression. Status post bilateral knee replacements. Plan: Provide the patient incentive spirometer Wean FiO2 Continue anticoagulation with Eliquis Increase mobility Discharge planning is in progress. The daughter may end up taking her father's to [facility] [place] for further care.
--- NOTE | 2022-03-18 15:20 | P.CN ---
Psychiatric Consult - . Consult date: 03/18/22 Consult:: IDENTIFYING DATA: This patient is a 66-year-old -Israeli male with to the medical unit on 03/15/2022 due to multiple acute pulmonary embolisms. REASON FOR REFERRAL: Psychiatry was consulted for depression. HISTORY OF PRESENT ILLNESS: The patient presented to the hospital on 03/14/2022 after being found by his courier delivery driver as living on the ground of his house for at least 2 weeks and living in [facility]. Patient was found to be suffering from multiple acute pulmonary embolisms. On my assessment today, patient is found laying in bed and is cooperative on assessment. He admits to struggling with depression for many years, and depression has worsened over the past 2 years as the pad that make and his daughter moving to [place]. He endorses depressed mood, anhedonia, low energy, difficulty concentrating, difficulty sleeping, excessive guilt and variable appetite. He denies suicidal or homicidal ideations, plan or intent. Patient denies any auditory, visual hallucinations and denies any paranoia or delusions. He reports his about 10 years ago and his daughter moved to [place] in the past 2 years. He tells me today that he now plans on moving to [place] to be closer to his daughter. He states his daughter is looking for an apartment for him in that area. He reports he was previously prescribed Zoloft about 14-16 years ago which helped his depression. He reports stopping the Zoloft after about a year as he felt better. He also reports a history of anxiety with chronic worries that are difficult to control. Patients denies drug or alcohol abuse. PAST PSYCHIATRIC HISTORY: Patient has a a history of depression. Patient reports previously taking Zoloft about 14-16 years ago which was helpful for his depression. Patient denies any previous psychiatric hospitalizations. Patient denies any psychiatric outpatient follow-up. Patient denies any history of suicide attempts in the past. PAST MEDICAL HISTORY: Multiple acute pulmonary embolisms in the left upper lobe and right lower lobe with no RV strain on CT of the chest Asymmetric subareolar density in the right breast and mammogram COPD with mild emphysema Pulmonary hypertension morbid obesity with BMI of 53.3 ALLERGIES: as per EMR. CHEMICAL DEPENDENCY HISTORY: He denies alcohol or drug abuse. He is a former smoker. FAMILY PSYCHIATRIC/SUBSTANCE USE HISTORY: Reports his father was an alcoholic. SOCIAL HISTORY: Patient was born and raised in [facility]. He is , about 10-12 years ago. He has a daughter who lives in [place]. He last worked about 15 years ago with [employer]. He is currently on disability. He lives alone in a rented [facility], but plans to move to [place] to be closer to his daughter. MENTAL STATUS EXAM: General Appearance: Patient appears to be stated age, is morbidly obese, with marginal hygiene and grooming. Behavior: Patient is calmly lying in bed without any agitated behavior. Speech: Patient's speech is fluent and nonpressured. Mood/Affect: Patient reports his mood is "depressed", affect is congruent Suicidality/Homicidality: Patient denies having any suicidal or homicidal ideation intent or plan. Perceptions: Patient denies any visual hallucinations and denies any auditory hallucinations. Though content/process: There is no evidence of any delusional thought content and thought process is linear and goal-directed. Memory and concentration: AOX3, grossly intact for the purposes of this session. Can spell "WORLD" backwards Judgment and insight: Fair IMPRESSIONS: Major depressive disorder, recurrent, moderate Unspecified anxiety disorder PLAN: -At this time patient DOES NOT meet criteria for inpatient psychiatric admission. -Would recommend the following medication changes/additions: Start Zoloft 50 mg daily for depression and anxiety. -Continue to reassess safety and initiate sitter if safety concerns arise. He is currently denying suicidal ideations. -platform worker to provide patient with outpatient mental health/psychiatry resources for appropriate follow up upon discharge. He plans to relocate to the [place] area. -Will continue to follow along to assess response to Zoloft. -Please contact with any questions. 03/18/22 14:18 03/18/22 15:09
[2022-03-18] MEDS: SERTRALINE 50 MG TAB PO SCH (16:41)
[2022-03-19] MEDS: MULTIVITAMINS, THERA 1 EACH TAB PO SCH (09:13)
[2022-03-19] MEDS: SERTRALINE 50 MG TAB PO SCH (09:13)
[2022-03-19] MEDS: APIXABAN 5 MG TAB PO SCH (09:13)
--- NOTE | 2022-03-19 09:57 | P.PN ---
Subjective Progress Note Date: 03/18/22 This is a pleasant 66 years old male with past medical history of depression Pt was found by labor delivery rn on the floor of his home, pt states he has been crawling around on the floor for two weeks after a fall at his home appoximately two weeks ago. patient has been falling even before that but he was able to get up, this time he was on the floor most of his furniture of his house was been throat awake because it was not in good shape, patient states that he was in the process of moving out. he was able to survive through delivery food. There was no family member or somebody else to take care of him. Also has been complaining of shortness of breath for more than 2 weeks with some dry cough but no chest pain. no abdominal pain or vomiting or diarrhea. No urinary complaints. No headache or blurred vision or slurred speech. No dizziness. No weakness or numbness. No back pain. He does not think his legs are weaker than usual but he feels generally weak. at baseline he uses a walker or cane On admission patient is tachypneic with a rate of 22. He was tachycardic around 104. He was saturating 97% on 5 L oxygen sepsis with tachypnea and tachycardia CBC, BMP and liver enzymes are unremarkable. Creatinine kinase is 173. Troponin is negative. D-dimer is elevated to 6.15. CTA of the chest showing positive pulmonary embolism in the left upper lobe and the right lower lobe with no evidence of RV strain. Also COPD with emphysema and pulmonary hypertension. Asymmetric subareolar density in the right breast and mammogram is recommended. CT of the head and neck: No acute intracranial abnormality. No acute fracture of the cervical spine. Degenerative grade 1 anterolisthesis of C2-C5 levels. Moderate spondylitic change on admission patient was started on heparin drip and normal saline 03/16/2022 Patient breathing is a stable and his anticoagulation is turned into Eliquis, therapeutic dose. Patient aware of his diagnosis and the need to continue with blood thinners to prevent complication which are explained for the patient extensively. Also he was informed about his right breast lesion that he needs mammogram as an outpatient and he verbalized understanding and acceptance. Risks including but not limited to cancer explained for him and he agrees. Further blood tests ordered still pending. Physical therapist recommended subacute rehab, patient informed and he agrees 03/17/2022 Patient is awake and alert, breathing is quiet. He is saturating well on 2 L ox ygen per minute. Mild leukocytosis of 12.2 which is stable. TSH 2.5. Today he started complaining of from abdominal pain, periumbilical with vomiting, he did not have bowel movements since admission. Therefore we will order a KUB and ask for surgery team consult. Patient currently is wished on Eliquis. Bedside nurse noted the patient severely depressed and emotional easily and he might benefit from psychiatric evaluation 03/18/2022 Patient is currently resting in bed. Awake and alert. Currently being continued on a liquids 5 mg twice daily for acute new diagnosis of pulmonary embolism. Requiring oxygen 2 L by nasal cannula. Bilateral lower admitted duplex and is negative. Denied any complaints of chest pain or worsening short of breath. No leg swelling. No fever no chills. No cough or sputum production. No headache or dizziness or lightheadedness. Otherwise patient is unable to take care of himself at home. Psychiatric has seen the patient due to major depression and anxiety disorder. Social work is on board. planning for rehab transfer. Current medications reviewed. Objective - Vital Signs Vital signs: Vital Signs Temp 98.2 F 03/18/22 07:55 Pulse 84 03/18/22 07:55 Resp 18 03/18/22 07:55 BP 117/69 03/18/22 07:55 Pulse Ox 98 03/18/22 07:55 FiO2 Intake & Output 03/17/22 03/18/22 03/18/22 18:59 06:59 18:59 Intake Total 40 280 828 Output Total 200 300 Balance -160 -20 828 Intake: IV 40 40 10 Invasive Line 2 40 40 10 Oral 240 818 Output: Urine 200 300 Other: Voiding Method Urinal External Catheter # Voids 2 1 # Bowel Movements 2 - Exam - Exam -GENERAL: The patient is alert and oriented x3, not in any acute distress. Morbidly obese HEENT: Pupils are round and equally reacting to light. EOMI. No scleral icterus. No conjunctival pallor. Normocephalic, atraumatic. No pharyngeal erythema. No thyromegaly. CARDIOVASCULAR: S1 and S2 present. No murmurs, rubs, or gallops. PULMONARY: Chest is clear to auscultation, no wheezing or crackles. ABDOMEN: Soft, nontender, nondistended, normoactive bowel sounds. No palpable organomegaly. MUSCULOSKELETAL: No joint swelling or deformity. EXTREMITIES: No cyanosis, clubbing, or pedal edema. NEUROLOGICAL: Gross neurological examination did not reveal any focal deficits. SKIN: No rashes. no petechiae. - Labs CBC & Chem 7: 03/18/22 08:56 03/18/22 08:56 Labs: Abnormal Lab Results - Last 24 Hours (Table) 03/18/22 03/18/22 Range/Units 08:56 08:56 Hgb 12.2 L (13.0-17.5) gm/dL Lymphocytes # 0.8 L (1.0-4.8) k/uL Creatinine 0.65 L (0.66-1.25) mg/dL Glucose 103 H (74-99) mg/dL Assessment and Plan Assessment: Multiple acute pulmonary embolisms in the left upper lobe and right lower lobe with no RV strain on CT of the chest Asymmetric subareolar density in the right breast Abdominal pain suspicious for ileus versus bowel obstruction. Resolved. Sadness and emotional, rule out depression COPD with mild emphysema Pulmonary hypertension morbid obesity with BMI of 53.3 Major depression and anxiety disorder Plan: This is a pleasant 66 years old male who presents with acute pulmonary embolism and deconditioning Continue with Eliquis Pulmonary is on board. Encourage incentive spirometry. Patient agrees to rehab Patient will need mammogram for his right breast lesion, he is informed and agrees. Risk of cancer explained for him and he verbalized understanding Surgical team consult for breast lesion and abdominal pain. Psychiatric consult for ruling out depression Labs and medication were reviewed.. Monitor lytes and vitals. DVT and GI prophylaxis. Further recommendations as per clinical course of the patient DVT prophylaxis: Eliquis GI PROPHYLAXIS: Pepcid Subacute rehab upon discharge, patient agreeable Prognosis is guarded Time with Patient: Greater than 30
--- NOTE | 2022-03-19 11:57 | P.PN ---
Subjective Progress Note Date: 03/19/22 This is a 66-year-old black male, very poor historian, who presents to the emergency room on March 14, with falling, and being on the ground in his house, for 2 weeks. The patient states he had a hard time getting up. Apparently EMS found the patient in conditions, the patient apparently had urinated on himself, and had defecated on himself as well. The patient apparently states he was not able get up on his feet and walk around. He's been immobile for at least 2 weeks he states. The patient does not have a physician. He denies any medical problems. He doesn't really take any medications on a regular basis. According to the ER roxi he denied any chest pain or chest discomfort. There is no fever or chills. There is no nausea vomiting or diarrhea. There is no evidence of any abdominal pain according to the patient. The patient had a chest x-ray which limits. A CT angiogram showed some segmental and subsegmental pulmonary emboli in the left upper lobe and right lower lobe, although the quality of the scan was poor because of motion artifact in the patient's body habitus. Dopplers of the lower extremities are negative for DVT. Head and cervical spine CT showed nothing acute, although there was an old lacunar infarct in the right basal ganglia. There is no acute fracture of the cervical spine. Lab data includes a white count of 7.4, hemoglobin 11.7, hematocrit 38, and platelet count 202,000. D-dimer was 6.15. PTT was 40.5. Sodium 138, potassium 4, chlorides 105, CO2 25, BUN and creatinine were 21 and 0.84. His CK was only 173. Troponin was negative. N-terminal proBNP was negative. Albumin was 3.6. Liver function tests were normal. Progress note dated 03/16/2022. 66-year-old black male seen yesterday in consultation. The patient was discovered to have a pulmonary embolism. The patient is currently on 4 L nasal cannula. The patient is feeling a bit better. Dopplers of the lower extremities were negative for DVT. Current laboratory data includes a white count of 5.9, hemoglobin 11.8, hematocrit 37.3, and a platelet count of 219,000. PTT was 92.5. The patient does remain on an IV heparin drip. Sodium, potassium, chloride, CO2, anion gap, BUN, and creatinine are all normal. The patient is seen today 03/17/2022 in follow-up on the selective care unit. He is currently resting comfortably in bed. Awake and alert in no acute distress. Denies any worsening shortness of breath cough or congestion. No hemoptysis. No chest pain or palpitations. He has been transitioned to Eliquis. He does desaturate to 84% on room air. 96% on 2 L nasal cannula. He's been afebrile. Hemodynamically stable. KUB x-ray revealed nonspecific abdomen. Few prominent small bowel loops could be on the basis of an ileus. Retained fecal debris throughout the colon can be associated with constipation. The patient has been nauseated today. White count 6.1. Hemoglobin 12.2. Platelets 206. 2021, I'm seeing the patient for a follow-up. Is a case of pulmonary embolism and is currently on Eliquis Milligrams by mouth twice a day. Is a new diagnosis of pulmonary embolism. All of his blood work essentially within normal limits. The patient is currently on 2 L of O2 nasal cannula with a pulse ox of 98%. Doppler of the lower extremity was negative. CT angiogram of the chest was completed at the time of admission and the patient was found to have segmental and subsegmental pulmonary emboli in the left upper lobe and right lower lobe. No other complaints otherwise for now. No bleeding complications. I personally reviewed the CAT scan of the chest and I agreed to the fact of presence of some unusual subsegmental defects to suggest pulmonary embolism. On 03/19/2022 patient seen in follow-up on selective care unit, she is resting in bed, currently on 2 L of oxygen which he has been wearing on and off for shortness of breath. No complaints of chest pain, vital signs have been stable, patient continues on Ahlquist for anticoagulation. Blood pressure has been stable. Tolerating oral intake, no nausea or vomiting. No abdominal pain, ab domen is soft and obese. No Aacute events overnight. Patient was evaluated by physical therapy, and the recommendation was made for subacute rehab placement in view of poor mobility. Objective - Vital Signs Vital signs: Vital Signs Temp 98.0 F 03/19/22 08:30 Pulse 95 03/19/22 08:30 Resp 18 03/19/22 08:30 BP 146/96 03/19/22 08:30 Pulse Ox 92 L 03/19/22 08:30 FiO2 Intake & Output 03/18/22 03/19/22 03/19/22 18:59 06:59 18:59 Intake Total 2298 620 Output Total 1025 Balance 2298 -405 Intake: IV 20 20 Invasive Line 2 20 20 Oral 2278 600 Output: Urine 1025 Other: Voiding Method External Catheter - Exam GENERAL EXAM: Alert, , 66-year-old -Swedish male, resting in bed, 2 L of oxygen,, comfortable in no apparent distress. HEAD: Normocephalic/atraumatic. EYES: Normal reaction of pupils, equal size. Conjunctiva pink, sclera white. NOSE: Clear with pink turbinates. THROAT: No erythema or exudates. NECK: No masses, no JVD, no thyroid enlargement, no adenopathy. CHEST: No chest wall deformity. Symmetrical expansion. LUNGS: Equal air entry with no crackles, wheeze, rhonchi or dullness. CVS: Regular rate and rhythm, normal S1 and S2, no gallops, no murmurs, no rubs ABDOMEN: Soft, nontender. No hepatosplenomegaly, normal bowel sounds, no guarding or rigidity. EXTREMITIES: No clubbing, bilateral lower extremity edema, no cyanosis, 2+ pulses and upper and lower extremities. MUSCULOSKELETAL: Muscle strength and tone normal. SPINE: No scoliosis or deformity SKIN: No rashes CENTRAL NERVOUS SYSTEM: Alert and oriented -3. No focal deficits, tone is normal in all 4 extremities. PSYCHIATRIC: Alert and oriented -3. Appropriate affect. Intact judgment and insight. - Labs CBC & Chem 7: 03/18/22 08:56 03/18/22 08:56 Assessment and Plan Plan: Acute hypoxic respiratory failure and the patient is currently on 2 L O2 nasal cannula Bilateral pulmonary emboli, in a patient with minimal pulmonary complaints.The patient is currently on Eliquis 10 mg by mouth twice a day and the patient is off IV heparin. No evidence of DVT in the lower extremities. Profound weakness. Obesity. Previous history of tobacco use. History of depression. Status post bilateral knee replacements. Back: No acute events overnight, patient is breathing comfortably, Continue anticoagulation with oral Eliquis discharge pending to subacute rehab today Stable for discharge from pulmonary perspective I have personally seen and examined the patient, performed the documentation and the assessment and plan as written. Number of minutes spent on the visit: [10] This is a joint evaluations was done along with a nurse practitioner. This evaluation was done and more than 10 minutes. The patient is currently on a nticoagulation. Discharge planning is in progress. Cardiopulmonary status is stable on 2 L of oxygen by nasal cannula. Time with Patient: Less than 30
--- NOTE | 2022-03-19 13:44 | P.PN ---
Progress Note - Text Progress Note Date: 03/19/22 Interval History: Patient was seen today for psychiatric follow-up regarding patient's depression. Patient was laying in bed watching TV. He states that he feels a bit better with regards to medication however was asking if they can be increased. Technical Solutions Engineer spoke with patient about the side effects of the medication benefits. She was agreeable to take 100 mg tomorrow. He claims that his anxiety is improving gradually as well as his mood. He states he sleeps and eats fairly. He is denying any overt complaints or any side effects from medications. He claims that he is happy to go to rehab in [place] today and be discharged from the hospital. At this time patient denies any suicidal or homical ideations, intent or plan. Patient denies any auditory, visual hallucinations and denies any paranoia or delusions. Patient denies any side effects from the medications and has been compliant with meds. Mental Status Exam: General Appearance: Patient appears to be stated age, is morbidly obese, with marginal hygiene and grooming. Behavior: Patient is calmly lying in bed without any agitated behavior. Speech: Patient's speech is fluent and nonpressured. Mood/Affect: Patient reports his mood is "better", affect is congruent and constricted Suicidality/Homicidality: Patient denies having any suicidal or homicidal ideation intent or plan. Perceptions: Patient denies any visual hallucinations and denies any auditory hallucinations. Though content/process: There is no evidence of any delusional thought content and thought process is linear and goal-directed. Memory and concentration: AOX3, grossly intact for the purposes of this session Judgment and insight: Fair IMPRESSIONS: Major depressive disorder, recurrent, moderate Unspecified anxiety disorder PLAN: -At this time patient DOES NOT meet criteria for inpatient psychiatric admission. -Would recommend the following medication changes/additions: Increase Zoloft 100 mg daily for depression and anxiety. -Continue to reassess safety and initiate sitter if safety concerns arise. He is currently denying suicidal ideations. -idea worker to provide patient with outpatient mental health/psychiatry resources for appropriate follow up upon discharge. He plans to relocate to the [facility]. -At this time psychiatry will sign off -Please contact with any questions.
--- NOTE | 2022-03-19 14:12 | P.DS ---
Providers Date of admission: 03/14/22 16:55 Expected date of discharge: 03/19/22 Attending physician: Vernon Julien Consults: 03/14/22 16:54 Consult Physician Urgent Consulting Provider: Gildardo Montes Consult Reason/Comments: Pulmonary embolism Do you want consulting provider notified?: Yes 03/17/22 11:06 Consult Physician Urgent Consulting Provider: Gildardo Reinoso Consult Reason/Comments: 1/right breast lesion, 2/abd pain and vomiting Do you want consulting provider notified?: Yes 03/17/22 14:56 Consult Physician Routine Consulting Provider: Fernando Deleon Consult Reason/Comments: depression, patient hasn't left home in 2 years Do you want consulting provider notified?: Yes Primary care physician: Stated None Hospital Course: Multiple acute pulmonary embolisms in the left upper lobe and right lower lobe with no RV strain on CT of the chest Asymmetric subareolar density in the right breast Abdominal pain suspicious for ileus versus bowel obstruction. Resolved. Sadness and emotional, rule out depression COPD with mild emphysema Pulmonary hypertension morbid obesity with BMI of 53.3 Major depression and anxiety disorder This is a pleasant 66 years old male with past medical history of depression Pt was found by delivery specialist on the floor of his home, pt states he has been crawling around on the floor for two weeks after a fall at his home appoximately two weeks ago. patient has been falling even before that but he was able to get up, this time he was on the floor most of his furniture of his house was been throat awake because it was not in good shape, patient states that he was in the process of moving out. he was able to survive through delivery food. There was no family member or somebody else to take care of him. Also has been complaining of shortness of breath for more than 2 weeks with some dry cough but no chest pain. no abdominal pain or vomiting or diarrhea. No urinary complaints. No headache or blurred vision or slurred speech. No dizziness. No weakness or numbness. No back pain. He does not think his legs are weaker than usual but he feels generally weak. at baseline he uses a walker or cane On admission patient is tachypneic with a rate of 22. He was tachycardic around 104. He was saturating 97% on 5 L oxygen sepsis with tachypnea and tachycardia CBC, BMP and liver enzymes are unremarkable. Creatinine kinase is 173. Troponin is negative. D-dimer is elevated to 6.15. CTA of the chest showing positive pulmonary embolism in the left upper lobe and the right lower lobe with no evidence of RV strain. Also COPD with emphysema and pulmonary hypertension. Asymmetric subareolar density in the right breast and mammogram is recommended. CT of the head and neck: No acute intracranial abnormality. No acute fracture of the cervical spine. Degenerative grade 1 anterolisthesis of C2-C5 levels. Moderate spondylitic change on admission patient was started on heparin drip and normal saline 03/16/2022 Patient breathing is a stable and his anticoagulation is turned into Eliquis, therapeutic dose. Patient aware of his diagnosis and the need to continue with blood thinners to prevent complication which are explained for the patient extensively. Also he was informed about his right breast lesion that he needs mammogram as an outpatient and he verbalized understanding and acceptance. Risks including but not limited to cancer explained for him and he agrees. Further blood tests ordered still pending. Physical therapist recommended subacute rehab, patient informed and he agrees 03/17/2022 Patient is awake and alert, breathing is quiet. He is saturating well on 2 L oxygen per minute. Mild leukocytosis of 12.2 which is stable. TSH 2.5. Today he started complaining of from abdominal pain, periumbilical with vomiting, he did not have bowel movements since admission. Therefore we will order a KUB and ask for surgery team consult. Patient currently is wished on Eliquis. Bedside nurse noted the patient severely depressed and emotional easily and he might benefit from psychiatric evaluation 03/18/2022 Patient is currently resting in bed. Awake and alert. Currently being continued on a liquids 5 mg twice daily for acute new diagnosis of pulmonary embolism. Requiring oxygen 2 L by nasal cannula. Bilateral lower admitted duplex and is negative. Denied any complaints of chest pain or worsening short of breath. No leg swelling. No fever no chills. No cough or sputum production. No headache or dizziness or lightheadedness. Otherwise patient is unable to take care of himself at home. Psychiatric has seen the patient due to major depression and anxiety disorder. Social work is on board. planning for rehab transfer. 03/19/2022 Patient is currently resting in the bed comfortably. Awake alert and oriented 3. Requiring oxygen at 2 L via nasal cannula. Encouraged with incentive spirometry. Lungs sound clear on exam. No compressive chest pain or shortness of breath. No fever no chills. No other acute overnight issues. Patient is tolerating oral diet. No headache or dizziness or lightheadedness. Patient will need PT OT and unable to take care of himself at home. Patient is being discharged to rehab. Laboratory data reviewed. We will continue with eliquis 10 mg twice a day for 4 more days followed by 5 mg twice a day. Diagnostic was to follow up with pulmonary as an outpatient. blood pressure 146/96, pulse 9580 and pulse ox 92% on room air. - Exam -GENERAL: The patient is alert and oriented x3, not in any acute distress. Morbidly obese HEENT: Pupils are round and equally reacting to light. EOMI. No scleral icterus. No conjunctival pallor. Normocephalic, atraumatic. No pharyngeal erythema. No thyromegaly. CARDIOVASCULAR: S1 and S2 present. No murmurs, rubs, or gallops. PULMONARY: Chest is clear to auscultation, no wheezing or crackles. ABDOMEN: Soft, nontender, nondistended, normoactive bowel sounds. No palpable organomegaly. MUSCULOSKELETAL: No joint swelling or deformity. EXTREMITIES: No cyanosis, clubbing, or pedal edema. NEUROLOGICAL: Gross neurological examination did not reveal any focal deficits. SKIN: No rashes. no petechiae. Patient Condition at Discharge: Fair Plan - Discharge Summary Discharge Rx Participant: No New Discharge Prescriptions: New Apixaban [Eliquis] 10 mg PO BID 4 Days #8 tab Apixaban [Eliquis] 5 mg PO BID 30 Days #60 tab Sertraline [Zoloft] 50 mg PO DAILY #30 tab Continue Multivitamins, Thera [Multivitamin (formulary)] 1 tab PO DAILY Discontinued Naproxen Sodium [Aleve] 220 mg PO BID PRN PRN Reason: Pain Discharge Medication List Multivitamins, Thera [Multivitamin (formulary)] 1 tab PO DAILY 03/14/22 [History] Apixaban [Eliquis] 5 mg PO BID 30 Days #60 tab 03/19/22 [Rx] Apixaban [Eliquis] 10 mg PO BID 4 Days #8 tab 03/19/22 [Rx] Sertraline [Zoloft] 50 mg PO DAILY #30 tab 06/07/22 [Rx] Follow up Appointment(s)/Referral(s): Gildardo Montes DO [Doctor of Osteopathic Medicine] - 4 Weeks None,Stated [Primary Care Provider] - 1-2 days Patient Instructions/Handouts: Sertraline (By mouth), Apixaban (By mouth), Pulmonary Embolism (ED), Using Oxygen at Home (ED) Discharge Disposition: TRANSFER TO SNF/ECF
[2022-03-19 16:46] VITALS: BP 147/75; PULSE 92; TEMP 98.2
[2022-03-19] MEDS ORDERED: ONDANSETRON 4 MG TAB PO PRN (17:01)
[2022-03-20] MEDS ORDERED: SERTRALINE 100 MG TAB PO SCH (09:00)
== END 2022-03-19 17:33 | DRG 175 ==
LOC: EC 12:21 → 3SCARD 16:55
PROVIDERS: ADMIT Hospitalist; ATTEND Hospitalist
DX: I26.94 Multiple subsegmental thrombotic pulmonary emboli without acute cor pulmonale (principal); J96.01 Acute respiratory failure with hypoxia; F33.1 Major depressive disorder, recurrent, moderate; Z68.43 Body mass index [BMI] 50.0-59.9, adult; K56.7 Ileus, unspecified; I27.20 Pulmonary hypertension, unspecified; R62.7 Adult failure to thrive; J43.9 Emphysema, unspecified; E66.01 Morbid (severe) obesity due to excess calories; Z20.822 Contact with and (suspected) exposure to COVID-19; Z28.310 Unvaccinated for COVID-19; S00.93XA Contusion of unspecified part of head, initial encounter; M43.12 Spondylolisthesis, cervical region; F41.9 Anxiety disorder, unspecified; N64.9 Disorder of breast, unspecified; R53.1 Weakness; I49.3 Ventricular premature depolarization; Z79.899 Other long term (current) drug therapy; Z87.891 Personal history of nicotine dependence; Z60.2 Problems related to living alone; Z86.73 Personal history of transient ischemic attack (TIA), and cerebral infarction without residual deficits; Z91.81 History of falling; Z96.653 Presence of artificial knee joint, bilateral; Y92.039 Unspecified place in apartment as the place of occurrence of the external cause; W19.XXXA Unspecified fall, initial encounter; W01.190A Fall on same level from slipping, tripping and stumbling with subsequent striking against furniture, initial encounter; Z81.1 Family history of alcohol abuse and dependence
CPT/HCPCS: 36415; 70450; 71046; 71275; 72125; 74018; 80048; 80053; 80076; 82550; 82607; 82746; 83036; 83605; 83735; 83880; 84443; 84484; 85025; 85379; 85610; 85730; 87635; 93005; 93306; 93970; 96361; 96374; 96375; 99291